=== PATIENT | female | born 1945 | race Caucasian/White ===

== ENCOUNTER → 2024-08-22 | Outpatient (CLI) | payer MEDICARE, OTHER, SELFPAY ==
[2024-08-22 13:05] LABS: Collection Type, Urine Clean Catch
[2024-08-22 14:43] LABS: Bacteria,Urine Rare; Bilirubin,Urine Negative (Negative); Blood,Urine Negative (Negative); Color,Urine Lt-Yellow (Lt Yel-Yel); Culture Indicated,Urine Not Indicated; Glucose, Urine Negative (Negative); Ketones,Urine Negative (Negative); Leukocyte Esterase,Urine Negative (Negative); Nitrite,Urine Negative (Negative); PH,Urine 6.5 (5.0-7.0); Protein,Urine Trace (Neg - Trace); RBC,Urine 1 /hpf (0-3); Specific Gravity,Urine 1.018 (1.001-1.035); Squamous Epithelial Cell,Urine 11 /hpf (0-5); Urobilinogen,Urine Negative mg/dL (0.0-1.0); WBC,Urine 5 /hpf (0-5)
[2024-08-22 14:51] LABS: Clarity,Urine Hazy (Clear/Hazy)
== END | disposition home or self-care (01) ==
PROVIDERS: PCP Family Medicine; Referring Provider Family Medicine; Visit Provider Family Medicine
DX: N39.0 Urinary tract infection, site not specified (principal)
CPT/HCPCS: 81001

== ENCOUNTER → 2024-08-23 | Outpatient (CLI) | payer MEDICARE, OTHER, SELFPAY ==
[2024-08-23 13:40] LABS: Anion Gap 5 (7-16); BUN/Creatinine Ratio 29 Ratio (12-20); Blood Urea Nitrogen 23 mg/dL (9-23); Calcium 8.8 mg/dL (8.3-10.6); Carbon Dioxide 27.1 mMol/L (20.0-31.0); Chloride 103 mMol/L (98-107); Creatinine (Component) 0.8 mg/dL (0.6-1.3); Glucose 97 mg/dL (74-106); Osmolality,Calculated 273 (275-295); Potassium 4.5 mMol/L (3.4-5.1); Sodium 135 mMol/L (136-145); eGFR > 60 See Note
== END | disposition home or self-care (01) ==
LOC: COPL 12:02
PROVIDERS: PCP Family Medicine; Referring Provider Nurse Practitioner Family; Visit Provider Nurse Practitioner Family
DX: E87.1 Hypo-osmolality and hyponatremia (principal)
CPT/HCPCS: 36415; 80048

== ENCOUNTER → 2024-08-29 | Outpatient (CLI) | payer MEDICARE, OTHER, SELFPAY ==
--- NOTE | 2024-08-29 10:40 | XR_ITS ---
Examination: Knee, left , 3 views Technique: Knee AP, lateral, oblique 3 views Date and time of exam: August 29, 2024 1158 hours INDICATIONS: Left knee replacement 2018, patient fell August 08, 2024 with injury to the knee with persistent knee pain FINDINGS: Moderate osteopenia Total left knee arthroplasty. Satisfactory alignment No fracture No definite loosening of the prosthetic components IMPRESSION: Total left knee arthroplasty with satisfactory alignment No fracture
== END | disposition home or self-care (01) ==
LOC: CDIM 10:22
PROVIDERS: PCP Family Medicine; Referring Provider Family Medicine; Visit Provider Family Medicine
DX: M25.562 Pain in left knee (principal); Z96.652 Presence of left artificial knee joint
CPT/HCPCS: 73562

== ENCOUNTER → 2024-11-01 | Outpatient (CLI) | payer MEDICARE, OTHER, SELFPAY ==
--- NOTE | 2024-11-01 16:44 | XR_ITS ---
Examination: PA lateral chest 2 views TECHNIQUE: Upright PA and lateral chest 2 views Standing time: November 01, 2024 5:44 PM INDICATIONS: Preop FINDINGS: Moderate hyperexpansion. Normal heart size. No pneumonia or pulmonary edema. Prominent osteopenia IMPRESSION: Moderate hyperexpansion No pneumonia or pulmonary edema.
== END | disposition home or self-care (01) ==
PROVIDERS: Referring Provider Family Medicine; Visit Provider Family Medicine
DX: R91.8 Other nonspecific abnormal finding of lung field (principal); J44.9 Chronic obstructive pulmonary disease, unspecified
CPT/HCPCS: 71046

== ENCOUNTER → 2024-11-03 | Outpatient (CLI) | payer MEDICARE, OTHER, SELFPAY ==
[2024-11-03 13:03] LABS: Collection Type, Urine Clean Catch; Squamous Epithelial Cell,Urine 0 /hpf (0-5)
[2024-11-03 13:24] LABS: Basophils # (Auto) 0.1 Thou/mm3 (0.0-0.2); Basophils % (Auto) 2 % (0-2.5); Eosinophils # (Auto) 0.1 Thou/mm3 (0.0-0.5); Eosinophils % (Auto) 3 % (0-10); Hematocrit 36.3 % (36.0-46.0); Hemoglobin 11.6 g/dL (12.0-16.0); Immature Granulocytes % (Auto) 0 % (0-0); Immature Granulocytes Auto 0.01 Thou/mm3 (0.00-0.00); Lymphocytes # (Auto) 1.5 Thou/mm3 (1.0-4.8); Lymphocytes % (Auto) 38 % (10-50); Mean Corpuscular Hemoglobin 29.3 pg (25.0-35.0); Mean Corpuscular Volume 92 fL (80-100); Monocytes # (Auto) 0.4 Thou/mm3 (0.0-0.8); Monocytes % (Auto) 9 % (0-12); Neutrophils # (Auto) 1.9 Thou/mm3 (1.8-7.7); Neutrophils % (Auto) 49 % (37-80); Nucleated Red Blood Cell % 0 /100 WBC (0); Platelet Count 254 Thou/mm3 (140-440); RDW Standard Deviation 47.8 fL (36.4-46.3); Red Blood Count 3.96 Miln/mm3 (4.00-5.20); White Blood Count 3.9 Thou/mm3 (3.6-11.0)
[2024-11-03 13:29] LABS: Bilirubin,Urine Negative (Negative); Blood,Urine Negative (Negative); Clarity,Urine Clear (Clear/Hazy); Color,Urine Colorless (Lt Yel-Yel); Culture Indicated,Urine Not Indicated; Glucose, Urine Negative (Negative); Ketones,Urine Negative (Negative); Leukocyte Esterase,Urine Negative (Negative); Nitrite,Urine Negative (Negative); Protein,Urine Negative (Neg - Trace); RBC,Urine 1 /hpf (0-3); Specific Gravity,Urine 1.011 (1.001-1.035); Urobilinogen,Urine Negative mg/dL (0.0-1.0); WBC,Urine 1 /hpf (0-5)
[2024-11-03 13:31] LABS: INR 1.1 (0.9-1.3); Partial Thromboplastin Time 25.5 Seconds (22.0-36.0); Prothrombin Time 11.7 Seconds (9.0-12.2)
[2024-11-03 15:56] LABS: Alanine Aminotransferase 40 U/L (10-49); Albumin/Globulin Ratio 1.8 (1.2-2.2); Alkaline Phosphatase 60 U/L (46-116); Anion Gap 5 (7-16); Aspartate Amino Transferase 39 U/L (0-34); BUN/Creatinine Ratio 26 Ratio (12-20); Bilirubin,Total 0.4 mg/dL (0.3-1.2); Blood Urea Nitrogen 21 mg/dL (9-23); Calcium 9.1 mg/dL (8.3-10.6); Calcium (Corrected) 9.1 mg/dL (8.5-10.1); Carbon Dioxide 29.9 mMol/L (20.0-31.0); Chloride 103 mMol/L (98-107); Creatinine (Component) 0.8 mg/dL (0.6-1.3); Globulin 2.2 gm/dL (2.3-3.5); Glucose 91 mg/dL (74-106); Osmolality,Calculated 278 (275-295); Sodium 138 mMol/L (136-145); Total Protein 6.2 gm/dL (5.7-8.2); eGFR > 60 See Note
== END | disposition home or self-care (01) ==
LOC: COPL 12:25
PROVIDERS: PCP Family Medicine; Referring Provider Family Medicine; Visit Provider Family Medicine
DX: I10 Essential (primary) hypertension (principal); N39.490 Overflow incontinence; D50.8 Other iron deficiency anemias
CPT/HCPCS: 36415; 80053; 81001; 85025; 85610; 85730

== ENCOUNTER 2024-12-28 10:27 | Inpatient (IN) | payer MEDICARE, OTHER, SELFPAY ==
[2024-12-28 10:31] VITALS: BP 150/73; PULSE 64; RESP 15; TEMP 36.8; O2SAT 98; BMI 19.4
[2024-12-28 10:52] VITALS: PULSE 65; RESP 18; O2SAT 96; BMI 19.4
--- NOTE | 2024-12-28 11:31 | XR_ITS ---
Examination: Left elbow 3 views Technique: Elbow AP, oblique, lateral 3 views Exam date and time: 12 1229 hours INDICATIONS: Patient fell today with injury elbow, elbow pain. FINDINGS: No acute fracture No dislocation Small elbow effusion IMPRESSION: No acute fracture Repeat this study short-term as clinically warranted.
--- NOTE | 2024-12-28 11:31 | XR_ITS ---
Examination:Left hip AP, lateral, AP pelvis 3 views Technique: Hip AP lateral, AP pelvis, 3 views Exam date and time:December 28, 2024 1259 hours INDICATIONS: Patient fell today with injury of the left hip, left hip pain. FINDINGS: Left hip bipolar hemiarthroplasty. Satisfactory alignment Suspicious for nondisplaced fracture left inferior pubic ramus Total right hip arthroplasty with satisfactory alignment IMPRESSION: Recommend CT examination pelvis without contrast follow-up to exclude acute fracture left inferior pubic ramus.
--- NOTE | 2024-12-28 11:31 | XR_ITS ---
Examination: Cervical spine 4 views TECHNIQUE: AP, lateral, swimmer's lateral, coned AP odontoid cervical spine 4 views Exam date and time: December 28, 2024 1229 hours Comparison September 09, 2011 INDICATIONS: Neck pain after falling today. FINDINGS: Straightening normal cervical lordosis. No cervical fracture. Intact odontoid. Significant disc narrowing C4-C5, C5-C6, C6-C7 IMPRESSION: No cervical fracture
--- NOTE | 2024-12-28 11:31 | XR_ITS ---
Examination: Forearm, left, 2 views. Technique: Forearm, AP, lateral 2 views Date and time of exam: December 28, 2024 1229 hours INDICATIONS: Patient fell today with injury to the forearm, forearm pain. FINDINGS: No acute fracture. Distal ulna is dorsally positioned on the lateral view which may be a function of projection, clinical correlation advised IMPRESSION: No acute fracture Suggest follow-up true lateral view the wrist as clinically warranted
--- NOTE | 2024-12-28 11:36 | XR_ITS ---
Examination: CT brain head without contrast. 2-D sagittal coronal reconstructions Date and time of exam:December 28, 2024 1153 hours INDICATIONS: Patient fell today with injury to the back of the head, head pain CTDI: vol (mGy):51.7 DLP: (mGycm):1181 Technique: Multiple CT axial sections of the brain have been obtained, 5 mm slice thickness. Contrast has not been administered. 2-D sagittal, coronal reconstructions have been obtained Low dose protocols were performed. One or more of the following dose reduction techniques were used; automated exposure control, adjustment of the mA and/or KV according to patient size, use of iterative reconstruction technique. Findings: No significant ventricular enlargement. Intra-axial or extra-axial hemorrhage density is not seen. No mass effect or midline shift Basal cisterns are not remarkable. Fourth ventricle is midline. Cranial vault intact. Significant right maxillary sinusitis Impression: Negative for acute hemorrhage, mass effect or midline shift
--- NOTE | 2024-12-28 11:36 | XR_ITS ---
Examination: AP chest single view TECHNIQUE: AP sitting portable chest single view Exam date and time: December 28, 2024 1242 hours Comparison November 01, 2024 INDICATIONS: Patient fell today with into the chest, chest pain FINDINGS: Normal heart size Skinfold over the right hemithorax No pneumothorax Prominent osteopenia IMPRESSION: No pneumothorax or pulmonary contusion Clavicles ribs appear grossly intact
--- NOTE | 2024-12-28 11:38 | PD.EDFALL ---
ED Fall Injury RME/HPI General Chief Complaint: Fall Stated Complaint: HIP+BODY PAIN,SECONDARY TO FALL Time Seen by Provider: 12/28/24 11:12 Source: patient Arrival date/time: 12/28/24 10:27 79-year-old female presents to the ED with chief complaint of left hip, left elbow, and left hip pain secondary to ground-level fall. She states she was helping her after he started to fall when he fell landing on top of her. She believes she hit her [place] countertop prior to falling to the ground. She is complaining of a left-sided scalp laceration as well as head pain, left anterior chest wall pain, left elbow pain with skin tears, left hip pain and groin pain. Pertinent past medical history includes chronic pain for which she had a spinal stimulator inserted last week as well as it being turned on this past Wednesday. She has also had a left hip replacement, left knee replacement. She denies any loss of consciousness, blurry or double vision, hearing changes dizziness. She denies any numbness, tingling or weakness to her extremities. Mode of arrival: EMS Limitations: no limitations RME / HPI Location of injury - extremities: Left: elbow and forearm Severity: moderate Associated symptoms (after fall): neck pain and unable to walk Related Data Home Medications ?Medication ?Instructions ?Recorded ?Confirmed ibandronate 150 mg tablet (Boniva) 150 mg PO Q30D #0 tabs 09/30/16 05/15/24 acyclovir 800 mg tablet 800 mg PO TID 05/15/24 05/15/24 escitalopram oxalate 5 mg tablet 5 mg PO QDAY 05/15/24 05/15/24 (Lexapro) eszopiclone 3 mg tablet (Lunesta) 3 mg PO HS 05/15/24 05/15/24 ibandronate 150 mg tablet 150 mg PO QMONTH 05/15/24 05/15/24 meloxicam 15 mg tablet 15 mg PO QDAY 05/15/24 05/15/24 Held on 05/15/24. Instructions: Resume on 05/16/24. methocarbamol 750 mg tablet 750 mg PO BID 05/15/24 05/15/24 Held on 05/15/24. Instructions: Resume on 05/16/24. propranolol 80 mg capsule,24 80 mg PO QDAY 05/15/24 05/15/24 hr,extended release solifenacin 10 mg tablet 10 mg PO QDAY 05/15/24 05/15/24 sumatriptan succinate 50 mg tablet 50 mg PO DAILY 05/15/24 05/15/24 tramadol 50 mg tablet 50 mg PO DAILY 05/15/24 05/15/24 Held on 05/15/24. Instructions: Resume on 05/16/24. Allergies Allergy/AdvReac Type Severity Reaction Status Date / Time Sulfa (Sulfonamide Allergy Severe Nausea/Vomi Verified 05/15/24 08:04 Antibiotics) tiing Review of Systems Review of Systems Systems Reviewed: All systems reviewed, normal except as documented Constitutional Constitutional: Reports as per HPI, Denies headache(s) and Denies weakness Eyes Eyes: Denies change in vision, Denies diplopia, Denies loss of vision and Denies other visual disturbances ENT Ears, Nose, Mouth, and Throat: Denies abnormal hearing, Denies dizziness, Denies epistaxis, Denies headache(s), Denies hearing loss and Reports neck pain Cardiovascular Cardiovascular: Denies chest pain, Denies dyspnea, Denies irregular heart rhythm, Denies lightheadedness and Denies syncope Respiratory Respiratory: Denies dyspnea Gastrointestinal Gastrointestinal: Denies abdominal pain, Denies nausea and Denies vomiting Musculoskeletal Musculoskeletal: Reports arthralgias, Reports limited range of motion, Reports neck pain, Denies numbness and Denies tingling Neurologic Neurologic: Denies abnormal hearing, Denies confusion, Denies dizziness, Denies headache(s), Denies loss of vision, Denies numbness, Denies paresthesias, Denies syncope, Denies tingling and Denies weakness Psychiatric Psychiatric: Denies confusion ED Exam General Limitations: Present no limitations General appearance: Present alert Head Head exam: Present other (Matted hair with blood noted to the left parietal scalp area.) Eye Eye exam: Present PERRL and EOMI; Absent nystagmus or periorbital swelling ENT ENT exam: Present normal oropharynx, mucous membranes moist, TM's normal bilaterally and normal external ear exam Neck Neck exam: Present tenderness (Left trapezius tenderness. No spinal point tenderness.) Chest Chest inspection: Present tenderness (Tenderness noted to the left anterior and lateral rib areas.) Respiratory Respiratory exam: Present normal lung sounds bilaterally; Absent respiratory distress Cardiovascular Cardiovascular exam: Present regular rate, normal rhythm and normal heart sounds; Absent irregular rhythm, systolic murmur or diastolic murmur Abdominal Exam Abdominal exam: Present soft and normal bowel sounds; Absent tenderness or trauma Rectal Exam Rectal exam: Present deferred Extremities Exam Extremities exam: Present other (Tenderness noted to the left elbow and forearm regions as well as tenderness to the left hip and groin. Skin tears noted to the left elbow and forearm regions.) Neurological Exam Neurological exam: Present alert and oriented X3; Absent motor sensory deficit Psychiatric Psychiatric exam: Present normal affect and normal mood Skin Skin exam: Present warm, dry and other (Skin tears as noted above) Course Quality Measures none Orders Category Date Time Status Cleanse Wound NEEDED Care 12/28/24 13:53 Active EKG (ED ONLY) *Do not use* NOW Care 12/28/24 22:37 Active IV [Insert IV] NOW Care 12/28/24 23:04 Active Consult to Orthopedic Stat Cons 12/28/24 22:[address] head/brain wo con Stat Exams 12/28/24 11:[address] pelvis wo con Stat Exams 12/28/24 15:41 Completed EKG (ED Only) Stat Exams 12/28/24 22:36 Ordered XR HIP LT W PELVIS (DO NOT USE) Stat Exams 12/28/24 11:31 Completed XR cervical spine 2-3V Stat Exams 12/28/24 11:31 Completed XR chest 1V Stat Exams 12/28/24 11:36 Completed XR elbow comp LT min 3V Stat Exams 12/28/24 11:31 Completed XR forearm LT 2V Stat Exams 12/28/24 11:31 Completed CBC Stat Lab 12/28/24 22:49 Completed CMP [Comprehensive Metabolic Panel] Stat Lab 12/28/24 22:49 Completed Lidocaine 1% W/Epi 1:100K 20Ml [Xylocaine 1% w/Epi 1: Med 12/28/24 14:39 Discontinued 100K 20 ml] 10 ml INFL X1 ONE Morphine Inj Med 12/28/24 11:48 Active 2 mg IVP Q1H PRN Morphine Inj Med 12/28/24 11:51 Discontinued 4 mg IVP Q1H PRN Ondansetron Inj [Zofran Inj] Med 12/28/24 21:53 Discontinued 4 mg IV X1 ONE Vital Signs Vital signs: Vital Signs Temperature 98.3 F 12/28/24 10:31 Pulse Rate 64 12/28/24 10:31 Respiratory Rate 15 12/28/24 10:31 Blood Pressure 150/73 H 12/28/24 10:31 Pulse Oximetry (%) 98 12/28/24 10:31 Oxygen Delivery Method Room Air 12/28/24 10:31 Procedures -ED Laceration Approximate 1.5 cm laceration noted to the left parietal/occipital scalp area. Bleeding is controlled. The wound was anesthetized with lidocaine 1%.: Site: scalp Side (If applicable): left Size (cm): 1.5 Description: irregular Depth: simple, single layer Local Anesthetic: lidocaine 1% and with epi Amount of anesthesia used (mL): 3.0 Pre-repair: wound explored and irrigated extensively Skin layer closed with: other ([place] x2) Left elbow x 2: Site: upper extremity Side (If applicable): left Size (cm): 3.5 Description: other (Skin tear x 2. Proximal laceration with minimal amount of skin flap. Distal laceration with no skin remaining.) Local Anesthetic: lidocaine 1% and with epi Amount of anesthesia used (mL): 2.0 Pre-repair: wound explored and irrigated extensively Technique: other (Unable to perform skin closure. Small skin flap unrolled to partially cover proximal end of proximal laceration. Wound cleansed. Tegaderm placed. Distal laceration with no skin remaining, wound cleansed, irrigated with saline, dried and covered with Tegaderm dressing.) Fall MDM Narrative MDM Narrative:: 79-year-old female presents to the ED with chief complaint of left hip, left elbow, and left hip pain secondary to ground-level fall. She states she was helping her after he started to fall when he fell landing on top of her. She believes she hit her [place] countertop prior to falling to the ground. She is complaining of a left-sided scalp laceration as well as head pain, left anterior chest wall pain, left elbow pain with skin tears, left hip pain and groin pain. Pertinent past medical history includes chronic pain for which she had a spinal stimulator inserted last week as well as it being turned on this past Wednesday. She has also had a left hip replacement, left knee replacement. She denies any loss of consciousness, blurry or double vision, hearing changes dizziness. She denies any numbness, tingling or weakness to her extremities. Tenderness noted to the left elbow and forearm regions as well as tenderness to the left hip and groin. Skin tears noted to the left elbow and forearm regions. Skin tear x 2. Proximal laceration with minimal amount of skin flap. Distal laceration with no skin remaining. Unable to perform skin closure. Small skin flap unrolled to partially cover proximal end of proximal laceration. Wound cleansed. Tegaderm placed. Distal laceration with no skin remaining, wound cleansed, irrigated with saline, dried and covered with Tegaderm dressing. Matted hair with blood noted to the left parietal scalp area. Approximate 1.5cm laceration noted after cleansing. Anesthesia with [place] 1% w/Epi. Closure with 2 donita with good wound edge approximation. Patient data External records reviewed:: None Clinical information provided by:: patient and family Social determinants that could affect healthcare access:: none Evaluation data The following diagnostics were reviewed and interpreted by me:: radiology exam(s) Lab and/or radiology exams considered but not ordered:: CT Brain Cervical Spine Chest XR 1V Left Elbow/Forearm Left Hip/Pelvis Interpretation Summary: 1V Chest: FINDINGS: Normal heart size Skinfold over the right hemithorax No pneumothorax Prominent osteopenia IMPRESSION: No pneumothorax or pulmonary contusion Clavicles ribs appear grossly intact CT Pelvis: FINDINGS: Sacral segments iliac bones intact Acute displaced fracture left inferior pubic ramus Acute fracture without significant displacement left superior pubic ramus near the symphysis Total right hip arthroplasty with satisfactory alignment Left hip bipolar hemiarthroplasty with satisfactory alignment No hip dislocation IMPRESSION: Acute fractures left superior and inferior pubic rami Medications / Prescriptions Medication administrations:: Medication Administration History Morphine Sulfate (Morphine Sulf Inj 10 Mg/Ml Vial) 2 mg IVP Q1H PRN PRN Reason: Moderate Pain 4-6 Last Admin: 12/28/24 23:02 Dose: 2 mg Documented By: Admin: 12/28/24 21:02 Dose: 2 mg Documented By: CVL Comments: IV LOCK LEFT HAND Discontinued Medications Lidocaine/Epinephrine (Lidocaine 1% W/Epi 1:100k 20 Ml Vial) 10 ml INFL X1 ONE Stop: 12/28/24 14:40 Last Admin: 12/28/24 15:54 Dose: 10 ml Documented By: VG Morphine Sulfate (Morphine Sulf Inj 10 Mg/Ml Vial) 4 mg IVP Q1H PRN PRN Reason: Severe pain 7-10 Last Admin: 12/28/24 15:54 Dose: 4 mg Documented By: Admin: 12/28/24 14:01 Dose: 4 mg Documented By: DEE DEE Admin: 12/28/24 12:07 Dose: 4 mg Documented By: VG Ondansetron HCl (Ondansetron Inj 2 Mg/Ml Inj 2 Ml) 4 mg IV X1 ONE; Protocol Stop: 12/28/24 21:54 Last Admin: 12/28/24 23:01 Dose: 4 mg Documented By: CVL Discharge Plan Prescriptions/Referrals Prescriptions/Med Rec: No Action ibandronate [Boniva] 150 MG tablet 150 mg PO Q30D Qty: 0 meloxicam 15 mg tablet 15 mg PO QDAY Patient Comments: TAKE 1 TABLET BY MOUTH EVERY DAY WITH FOOD sumatriptan succinate 50 mg Tablet 50 mg PO DAILY tramadol 50 mg tablet 50 mg PO DAILY Patient Comments: TAKE 1 TABLET BY MOUTH TWICE A DAY NEEDED acyclovir 800 mg Tablet 800 mg PO TID methocarbamol 750 mg Tablet 750 mg PO BID propranolol 80 mg capsule,extended release 24 hr 80 mg PO QDAY Patient Comments: TAKE 1 CAPSULE BY MOUTH EVERY DAY escitalopram oxalate [Lexapro] 5 mg Tablet 5 mg PO QDAY solifenacin 10 mg tablet 10 mg PO QDAY Patient Comments: TAKE 1 TABLET BY MOUTH EVERY DAY FOR 90 DAYS eszopiclone [Lunesta] 3 mg Tablet 3 mg PO HS ibandronate 150 mg Tablet 150 mg PO QMONTH Referrals: Ekaterina Willett MD [Primary Care Provider] - In 1 week Patient/Caregiver Discharge Instructions Print Language: Citizen Of [place]
[2024-12-28] MEDS: MORPHINE SULF INJ 10 MG/ML VIAL 4 MG IVP ×3 (12:07→15:54)
[2024-12-28 14:00] VITALS: BP 147/75; PULSE 73; RESP 18; TEMP 36.8; O2SAT 96
--- NOTE | 2024-12-28 15:41 | XR_ITS ---
Examination: CT pelvis without intravenous contrast. 2-D sagittal and coronal reconstructions. Date and time of exam:December 28, 2024 2120 hours INDICATIONS: Patient fell today with injury to the left hip, left hip pain CTDI: vol (mGy) :5.5 DLP: (mGycm) : 217 Technique: Multiple 3 mm axial sections of the pelvis have been obtained with the 64 slice high resolution scanner. 2-D sagittal and coronal reconstructions. Low dose protocols were performed. One or more of the following dose reduction techniques were used; automated exposure control, adjustment of the mA and/or KV according to patient size, use of iterative reconstruction technique. Findings: Sacral segments iliac bones intact Acute displaced fracture left inferior pubic ramus Acute fracture without significant displacement left superior pubic ramus near the symphysis Total right hip arthroplasty with satisfactory alignment Left hip bipolar hemiarthroplasty with satisfactory alignment No hip dislocation IMPRESSION: Acute fractures left superior and inferior pubic rami
[2024-12-28] MEDS: LIDOCAINE 1% W/EPI 1:100K 20 ML VIAL 10 ML INFL (15:54)
[2024-12-28 18:23] VITALS: BP 143/86; PULSE 79; RESP 16; TEMP 36.8; O2SAT 96
[2024-12-28] MEDS: MORPHINE SULF INJ 10 MG/ML VIAL 2 MG IVP ×2 (21:02→23:02)
--- NOTE | 2024-12-28 22:36 | EKG_ITS ---
[facility] Test Date: 2024-12-28 Pat Name: SHILPA MCPHERSON Department: Room: - Gender: Female [place] Operator: : [id number] Requested By: Maynor Rodgers Order Number: [id number] Reading MD: Maynor Rodgers Measurements Intervals [place] Rate: 67 P: 69 OR: 164 QRS: 42 QRSD: 94 T: 58 QT: 406 QTc: 429 Interpretive Statements SINUS RHYTHM POSSIBLE LEFT ATRIAL ENLARGEMENT [-0.1mV P-WAVE IN V1/V2] POSSIBLE RIGHT VENTRICULAR CONDUCTION DELAY [RSR (QR) IN V1/V2] Compared to ECG 08/24/2022 10:46:16 Myocardial infarct finding no longer present /store/[id number]
[2024-12-28] MEDS: ONDANSETRON INJ 2 MG/ML INJ 2 ML 4 MG IV (23:01)
[2024-12-28 23:06] LABS: Basophils % (Auto) 0 % (0-2.5); Eosinophils # (Auto) 0.1 Thou/mm3 (0.0-0.5); Eosinophils % (Auto) 1 % (0-10); Hematocrit 32.6 % (36.0-46.0); Hemoglobin 10.7 g/dL (12.0-16.0); Immature Granulocytes % (Auto) 0 % (0-0); Immature Granulocytes Auto 0.03 Thou/mm3 (0.00-0.00); Lymphocytes # (Auto) 0.8 Thou/mm3 (1.0-4.8); Lymphocytes % (Auto) 12 % (10-50); Mean Corpuscular HGB Conc 32.8 g/dl (31.0-37.0); Mean Corpuscular Hemoglobin 29.3 pg (25.0-35.0); Mean Corpuscular Volume 89 fL (80-100); Monocytes # (Auto) 0.5 Thou/mm3 (0.0-0.8); Monocytes % (Auto) 7 % (0-12); Neutrophils # (Auto) 5.5 Thou/mm3 (1.8-7.7); Neutrophils % (Auto) 79 % (37-80); Nucleated Red Blood Cell % 0 /100 WBC (0); Platelet Count 220 Thou/mm3 (140-440); RDW Standard Deviation 47.7 fL (36.4-46.3); Red Blood Count 3.65 Miln/mm3 (4.00-5.20)
[2024-12-28 23:13] LABS: Alanine Aminotransferase 31 U/L (10-49); Albumin, Serum 3.6 gm/dL (3.4-4.8); Albumin/Globulin Ratio 1.6 (1.2-2.2); Alkaline Phosphatase 70 U/L (46-116); Anion Gap 6 (7-16); Aspartate Amino Transferase 33 U/L (0-34); BUN/Creatinine Ratio 24 Ratio (12-20); Bilirubin,Total 0.8 mg/dL (0.3-1.2); Blood Urea Nitrogen 17 mg/dL (9-23); Calcium 8.6 mg/dL (8.3-10.6); Calcium (Corrected) 8.9 mg/dL (8.5-10.1); Carbon Dioxide 29.7 mMol/L (20.0-31.0); Chloride 103 mMol/L (98-107); Creatinine (Component) 0.7 mg/dL (0.6-1.3); Estimated Creatinine Clearance 60.7 mL/min (>60); Globulin 2.3 gm/dL (2.3-3.5); Glucose 118 mg/dL (74-106); Osmolality,Calculated 280 (275-295); Potassium 4.3 mMol/L (3.4-5.1); Sodium 139 mMol/L (136-145); Total Protein 5.9 gm/dL (5.7-8.2); eGFR > 60 See Note
--- NOTE | 2024-12-28 23:52 | PD.RESHP ---
Documentation for date of: 12/28/24 HPI History of Present Illness Chief complaint: pain in the left groin area History of present illness: Patient is a 79-year-old female with previous medical history of anxiety, osteopenia, status post bilateral hip replacement who was brought in to the ED due to mechanical fall. She was helping her when he was repairing something while standing on a ladder, he lost his balance and fell back on her. She landed on the left side of her body, hit her head, denies losing consciousness. She reports left groin pain, pain in the left elbow. She had lacerations on the head, skin tear on the left elbow. ED course: Blood pressure 150/73, heart rate 64, saturating well on room air. Hemoglobin 10.7, platelets 220, sodium 139, potassium 4.3, EGFR more than 60, head CT negative for acute hemorrhage, mass effect or midline shift. Left arm imaging negative for fractures and dislocations. Hip and pelvis x-ray and 3 views suspicious for left inferior pubic rami fracture. Dr. Pittman, orthopedic surgeon was consulted, recommended conservative treatment and physical rehabilitation. Patient is going to be admitted for stable pubic rami pelvis fracture management and treatment. Social history: Does not smoke and does not drink alcohol. Before fall, fully independent in her everyday life, exercises regularly. Medications: Official med rec is pending Allergies: Sulfa drugs Review of Systems Review of Systems Systems Reviewed: All systems reviewed, normal except as documented Past Medical History Past Medical History NEUROLOGIC: Negative Neurological Disorders CARDIAC: Positive Valvular Heart Disease RESPIRATORY: Negative Respiratory Disorders GASTROINTESTINAL: Negative Gastrointestinal Disorders GENITOURINARY: Negative Genitourinary Disorders MUSCULOSKELETAL: Positive Musculoskeletal Disorders (osteopenia) and Degenerative Joint Disease Exam Vital Signs Temp Pulse Resp BP Pulse Ox O2 Del Method 98.2 F 79 16 143/86 H 96 Room Air 12/28/24 18:23 12/28/24 18:23 12/28/24 18:23 12/28/24 18:23 12/28/24 18:23 12/28/24 18:23 Narrative Exam Physical Exam General: Awake and in no acute distress. Conversational and non-toxic appearing. HEENT: Normocephalic, atraumatic, mucous membranes moist. Heart: Regular rate and rhythm, no murmurs. Lungs: Clear to auscultation with no wheezing or crackles. Abdomen: Soft, nondistended, nontender, positive bowel sounds. ?No guarding or rebound tenderness. Neurologic: Alert and oriented x3, no gross neurological deficit, and patient able to move all 4 extremities. Extremities: No edema. Extreme pain in the right groin during passive leg raise. Skin: No rash or ecchymoses. Results: Labs 12/29/24 05:17 12/29/24 05:17 Labs: Short CBC 12/28/24 Range/Units 22:49 WBC 7.0 (3.6-11.0) Thou/mm3 Hgb 10.7 L (12.0-16.0) g/dL Hct 32.6 L (36.0-46.0) % Plt Count 220 (140-440) Thou/mm3 BMP 12/28/24 22:49 Sodium 139 Potassium 4.3 Chloride 103 Carbon Dioxide 29.7 BUN 17 Creatinine 0.7 Glucose 118 H Calcium 8.6 Liver Function 12/28/24 Range/Units 22:49 Total Bilirubin 0.8 (0.3-1.2) mg/dL AST 33 (0-34) U/L ALT 31 (10-49) U/L Alkaline Phosphatase 70 (46-116) U/L Albumin 3.6 (3.4-4.8) gm/dL Quality Measures Quality Measures VTE prophylaxis Advance care planning discussed with:: patient and child Medications Home Medications and Allergies Home Medications ?Medication ?Instructions ?Recorded ?Confirmed ?Type ibandronate 150 mg tablet (Boniva) 150 mg PO Q30D #0 tabs 09/30/16 05/15/24 History acyclovir 800 mg tablet 800 mg PO TID 05/15/24 12/29/24 History escitalopram oxalate 5 mg tablet 5 mg PO HS 05/15/24 12/29/24 History (Lexapro) eszopiclone 3 mg tablet (Lunesta) 3 mg PO HS 05/15/24 12/29/24 History ibandronate 150 mg tablet 150 mg PO QMONTH 05/15/24 12/29/24 History meloxicam 15 mg tablet 15 mg PO QDAY 05/15/24 12/29/24 History Held on 05/15/24. Instructions: Resume on 05/16/24. propranolol 80 mg capsule,24 80 mg PO HS 05/15/24 12/29/24 History hr,extended release solifenacin 10 mg tablet 10 mg PO QDAY 05/15/24 12/29/24 History sumatriptan succinate 50 mg tablet 50 mg PO BID PRN migraine headache 05/15/24 12/29/24 History tramadol 50 mg tablet 50 mg PO DAILY 05/15/24 05/15/24 History Held on 05/15/24. Instructions: Resume on 05/16/24. Allergies Allergy/AdvReac Type Severity Reaction Status Date / Time Sulfa (Sulfonamide Allergy Severe Nausea/Vomi Verified 05/15/24 08:04 Antibiotics) tiing Visit Medications Acetaminophen (Acetaminophen 325 Mg Tablet) 650 mg PO Q6H PRN PRN Reason: Fever >100.3 or pain 1-3 Stop: 01/27/25 23:41 Docusate Sodium (Docusate Sod 100 Mg Capsule) 100 mg PO QDAY [facility]; Protocol Stop: 01/28/25 08:59 Enoxaparin Sodium (Enoxaparin Sod Inj 40 Mg/0.4 Ml Syringe) 40 mg SC QDAY FUNMI Stop: 01/12/25 08:59 Escitalopram Oxalate (Escitalopram Oxalate 10 Mg Tablet) 5 mg PO HS FUNMI Stop: 01/28/25 20:59 Melatonin (Melatonin 3 Mg Tablet) 3 mg PO HS PRN PRN Reason: SLEEPLESSNESS Stop: 01/28/25 20:59 Morphine Sulfate (Morphine Sulf Inj 10 Mg/Ml Vial) 2 mg IVP Q1H PRN PRN Reason: Moderate Pain 4-6 Last Admin: 12/28/24 23:02 Dose: 2 mg Morphine Sulfate (Morphine Sulf Inj 10 Mg/Ml Vial) 1 mg IVP Q2H PRN PRN Reason: PAIN SCALE 7-10 (Severe Stop: 01/02/25 23:41 Ondansetron HCl (Ondansetron Inj 2 Mg/Ml Inj 2 Ml) 4 mg IV Q6H PRN; Protocol PRN Reason: NAUSEA OR VOMITING Stop: 01/27/25 23:41 Oxycodone/Acetaminophen (Oxycodone/Apap 5/325 Tablet) 1 tab PO Q6H PRN PRN Reason: PAIN SCALE 4-6 (Moderate Stop: 01/02/25 23:41 Sennosides (Senna Tablet) 1 tab PO QDAY [facility]; Protocol Stop: 01/28/25 08:59 Discontinued Medications Lidocaine/Epinephrine (Lidocaine 1% W/Epi 1:100k 20 Ml Vial) 10 ml INFL X1 ONE Stop: 12/28/24 14:40 Last Admin: 12/28/24 15:54 Dose: 10 ml Morphine Sulfate (Morphine Sulf Inj 10 Mg/Ml Vial) 4 mg IVP Q1H PRN PRN Reason: Severe pain 7-10 Last Admin: 12/28/24 15:54 Dose: 4 mg Morphine Sulfate (Morphine Sulf Inj 10 Mg/Ml Vial) 2 mg IVP X1 ONE Stop: 12/28/24 23:43 Ondansetron HCl (Ondansetron Inj 2 Mg/Ml Inj 2 Ml) 4 mg IV X1 ONE; Protocol Stop: 12/28/24 21:54 Last Admin: 12/28/24 23:01 Dose: 4 mg Assessment & Plan Plan Patient is a 79-year-old female with previous medical history of anxiety, osteopenia, mitral valve prolapse, status post bilateral hip replacement who was brought in to the ED due to mechanical fall. She was admitted for stable pelvis fracture management and treatment. #Left pubic rami fracture Patient has a history of osteopenia and had a mechanical fall. Dr. Pittman orthopedic surgeon was consulted, recommended conservative treatment. Plan: ? Pain control as needed ? Physical therapy evaluation ? Consider SNF placement on discharge ? Ortho consult #History of osteopenia Plan: ? follow-up outpatient #History of anxiety ? Resumed home Lexapro #History of mitral valve prolapse Stable condition. Patient's computer processing scheduler is Dr. Guallpa. Plan: ? Consider resuming home propranolol Health maintenance: FEN: cardiac DVT prophylaxis: lovenox sc GI prophylaxis: none Dispo: med surg CODE STATUS: Full code Plan of care discussed with attending Dr. Resendiz. Pamela Zimmerman MD, PGY 1. Attending Provider Attestation/Addendum I attest that I was physically present for the evaluation, physical examination, lab and imaging review of the patient with the residents. I discussed the case with the residents and agree with the findings and plans of care as documented above. Patient is a 79 years old female with past medical history of anxiety, osteopenia, status post bilateral hip replacement who presented to the ED after a mechanical fall. Patient was helping her while standing on the ladder, her lost balance and fell on her. In the ED, her blood pressure was 150s/73, rest of the vitals were within normal limits, saturating well on room air. Lab results were nonconcerning. CT head was negative for acute hemorrhage, mass effect or midline shift. Hip and pelvis x-ray shows suspicion for left inferior pubic rami fracture. Orthopedic surgeon was contacted by ED, recommended conservative treatment and physical therapy. We will admit the patient for management of left pubic rami fracture. We will start analgesic regimen, obtain physical therapy and orthopedics consult. Andre Resendiz MD
[2024-12-29] VITALS (10 sets, daily range): BP systolic 114–142; BP diastolic 64–79; PULSE 68–79; RESP 16–96; TEMP 36.4–37.6; O2SAT 92–95; BMI 19.3; BMI 12.0
[2024-12-29] MEDS: MORPHINE SULF INJ 10 MG/ML VIAL 2 MG IVP (00:53)
[2024-12-29] MEDS: TETANUS,DIPHTHERIA TOXOIDS/PF (ADULT) 0.5 ML SYRINGE IMi (00:55)
[2024-12-29] MEDS: MORPHINE SULF INJ 10 MG/ML VIAL IVP ×7 (02:20→18:43)
[2024-12-29 05:34] LABS: Basophils % (Auto) 1 % (0-2.5); Eosinophils # (Auto) 0.1 Thou/mm3 (0.0-0.5); Eosinophils % (Auto) 1 % (0-10); Hematocrit 31.1 % (36.0-46.0); Hemoglobin 10.1 g/dL (12.0-16.0); Immature Granulocytes % (Auto) 1 % (0-0); Immature Granulocytes Auto 0.03 Thou/mm3 (0.00-0.00); Lymphocytes # (Auto) 0.9 Thou/mm3 (1.0-4.8); Lymphocytes % (Auto) 15 % (10-50); Mean Corpuscular HGB Conc 32.5 g/dl (31.0-37.0); Mean Corpuscular Hemoglobin 29.5 pg (25.0-35.0); Mean Corpuscular Volume 91 fL (80-100); Monocytes # (Auto) 0.5 Thou/mm3 (0.0-0.8); Monocytes % (Auto) 8 % (0-12); Neutrophils # (Auto) 4.5 Thou/mm3 (1.8-7.7); Neutrophils % (Auto) 75 % (37-80); Nucleated Red Blood Cell % 0 /100 WBC (0); Platelet Count 215 Thou/mm3 (140-440); RDW Standard Deviation 48.8 fL (36.4-46.3); Red Blood Count 3.42 Miln/mm3 (4.00-5.20); White Blood Count 5.9 Thou/mm3 (3.6-11.0)
[2024-12-29 06:10] LABS: Alanine Aminotransferase 27 U/L (10-49); Albumin, Serum 3.4 gm/dL (3.4-4.8); Albumin/Globulin Ratio 1.7 (1.2-2.2); Alkaline Phosphatase 65 U/L (46-116); Anion Gap 5 (7-16); Aspartate Amino Transferase 27 U/L (0-34); BUN/Creatinine Ratio 28 Ratio (12-20); Bilirubin,Total 0.6 mg/dL (0.3-1.2); Blood Urea Nitrogen 17 mg/dL (9-23); Calcium 8.3 mg/dL (8.3-10.6); Calcium (Corrected) 8.8 mg/dL (8.5-10.1); Carbon Dioxide 29.6 mMol/L (20.0-31.0); Chloride 101 mMol/L (98-107); Creatinine (Component) 0.6 mg/dL (0.6-1.3); Estimated Creatinine Clearance 70.3 mL/min (>60); Glucose 122 mg/dL (74-106); Magnesium 1.8 mg/dL (1.6-2.6); Osmolality,Calculated 274 (275-295); Phosphorous 3.2 mg/dL (2.4-5.1); Potassium 4.2 mMol/L (3.4-5.1); Sodium 136 mMol/L (136-145); Total Protein 5.4 gm/dL (5.7-8.2); eGFR > 60 See Note
[2024-12-29] MEDS: ONDANSETRON INJ 2 MG/ML INJ 2 ML 4 MG IV ×2 (07:28→19:52)
[2024-12-29] MEDS: oxyCODONE/APAP 5/325 TABLET 1 TAB PO ×2 (07:28→15:31)
[2024-12-29] MEDS: DOCUSATE SOD 100 MG CAPSULE PO (08:28)
[2024-12-29] MEDS: SENNA TABLET 1 TAB PO (08:28)
[2024-12-29] MEDS: ENOXAPARIN SOD INJ 40 MG/0.4 ML SYRINGE SC (08:29)
--- NOTE | 2024-12-29 09:37 | PC.SS ---
Follow up note: On IV pain meds. Pain management. Dr. Pittman is consulting. Pt is possible dc to SNF.
--- NOTE | 2024-12-29 11:23 | PC.SS ---
PASRR assessment Leve 2 requires to be closed before d/c to SNF.
--- NOTE | 2024-12-29 11:38 | PCS.ST ---
SS met with patient and regarding her d/c plan.? Pt is alert/oriented.? Pt was admitted for Pelvic Fracture.? Pt confirmed demographic and contact information is correct on facesheet.? Pt resides with .? Prior to being hospitalized pt ambulated independently without assistance or DME.? Pt was ok with all ADLs before being hospitalized.? Pt named her , Dima Luis medical decision maker if she is unable.? SS provided verbal options for d/c to home or SNF.? Patient?s choice is SNF.? Patient's 1st choice is [facility], 2nd [facility], and 3rd [facility].? Pt states she has an advance directive at home.? Pt states she is not diabetic and is not on dialysis.? Pt states she followed up with PCP in November and her next appointment is Wednesday.? Pt and are both aware patient's health insurance does not cover transportation to SNF and if pt is requiring transportation they will have to pay privately. D/C plan:? SNF, 1st choice is [facility] Next of Kin:? ?[facility], , phone# [phone] PCP:? Dr. Ekaterina Willett Address:? Correct on facesheet
--- NOTE | 2024-12-29 12:35 | ESPR_ITS ---
<Statement entered by Jose M Parker MD - 12/29/24 16:01> I discussed with and supervised the internet network specialist physician involved in the care of this patient. Patient assessment and plan was discussed with entire medicine team, including my attending. I agree with the assessment and plan as documented by internet network specialist doctor. Patient care was discussed with my attending physician Dr. Deloris Parker, PGY-2 Documentation for date of: 12/29/24 Subjective Subjective Interval history: Patient seen and examined at bedside. Labs and vitals reviewed. Patient complains of pain, requiring IV pain medications. Orthopedics consulted, conservative management, weight bearing as tolerated. Pending physical therapy evaluation. Exam Vital Signs Temp Pulse Resp BP Pulse Ox O2 Del Method 98.1 F 79 20 118/67 95 Room Air 12/29/24 11:56 12/29/24 11:56 12/29/24 11:56 12/29/24 11:56 12/29/24 11:56 12/29/24 11:56 Narrative Exam Physical Exam General: Awake and in no acute distress. Conversational and non-toxic appearing. HEENT: Normocephalic, atraumatic, mucous membranes moist. Heart: Regular rate and rhythm, no murmurs. Lungs: Clear to auscultation with no wheezing or crackles. Abdomen: Soft, nondistended, nontender, positive bowel sounds. ?No guarding or rebound tenderness. Neurologic: Alert and oriented x3, no gross neurological deficit, and patient able to move all 4 extremities. Extremities: No edema. Extreme pain in the right groin during passive leg raise. Skin: No rash or ecchymoses. Objective Labs 12/29/24 05:17 12/29/24 05:17 Labs: Laboratory Results - last 24 hr 12/28/24 12/29/24 22:49 05:17 WBC 7.0 5.9 RBC 3.65 L 3.42 L Hgb 10.7 L 10.1 L Hct 32.6 L 31.1 L MCV 89 91 MCH 29.3 29.5 MCHC 32.8 32.5 RDW Std Deviation 47.7 H 48.8 H Plt Count 220 215 Neut % (Auto) 79 75 Lymph % (Auto) 12 15 [place] % (Auto) 7 8 Eos % (Auto) 1 1 Baso % (Auto) 0 1 Neut # (Auto) 5.5 4.5 Lymph # (Auto) 0.8 L 0.9 L [place] # (Auto) 0.5 0.5 Eos # (Auto) 0.1 0.1 Baso # (Auto) 0.0 0.0 Immature Gran # (Auto) 0.03 H 0.03 H Absolute Nucleated RBC 0.00 0.00 Immature Gran % 0 1 H Nucleated RBC % 0 0 Sodium 139 136 Potassium 4.3 4.2 Chloride 103 101 Carbon Dioxide 29.7 29.6 Anion Gap 6 L 5 L BUN 17 17 Creatinine 0.7 0.6 Estim Creat Clear Calc 60.7 L 70.3 eGFR > 60 > 60 BUN/Creatinine Ratio 24 H 28 H Glucose 118 H 122 H Calculated Osmolality 280 274 L Calcium 8.6 8.3 Corrected Calcium 8.9 8.8 Phosphorus 3.2 Magnesium 1.8 Total Bilirubin 0.8 0.6 AST 33 27 ALT 31 27 Alkaline Phosphatase 70 65 Total Protein 5.9 5.4 L Albumin 3.6 3.4 Globulin 2.3 2.0 L Albumin/Globulin Ratio 1.6 1.7 Quality Measures Quality Measures VTE prophylaxis Advance care planning discussed with:: patient Assessment & Plan Assessment Current Active Medications: Generic Name Dose Route Start Last Admin Trade Name Freq PRN Reason Stop Dose Admin Acetaminophen 650 mg 12/28/24 23:42 Acetaminophen 325 Mg Tablet PO 01/27/25 23:41 Q6H PRN Fever >100.3 or pain 1-3 Docusate Sodium 100 mg 12/29/24 09:00 12/29/24 08:28 Docusate Sod 100 Mg Capsule PO 01/28/25 08:59 100 mg QDAY FUNMI Administration Protocol Enoxaparin Sodium 40 mg 12/29/24 09:00 12/29/24 08:29 Enoxaparin Sod Inj 40 Mg/0.4 Ml Syringe SC 01/12/25 08:59 40 mg QDAY FUNMI Administration Escitalopram Oxalate 5 mg 12/29/24 21:00 Escitalopram Oxalate 10 Mg Tablet PO 01/28/25 20:59 HS FUNMI Melatonin 3 mg 12/28/24 23:48 Melatonin 3 Mg Tablet PO 01/28/25 20:59 HS PRN SLEEPLESSNESS Morphine Sulfate 1 mg 12/28/24 23:42 12/29/24 12:02 Morphine Sulf Inj 10 Mg/Ml Vial IVP 01/02/25 23:41 1 mg Q2H PRN Administration PAIN SCALE 7-10 (Severe Ondansetron HCl 4 mg 12/28/24 23:42 12/29/24 07:28 Ondansetron Inj 2 Mg/Ml Inj 2 Ml IV 01/27/25 23:41 4 mg Q6H PRN Administration NAUSEA OR VOMITING Protocol Oxycodone/Acetaminophen 1 tab 12/28/24 23:42 12/29/24 07:28 Oxycodone/Apap 5/325 Tablet PO 01/02/25 23:41 1 tab Q6H PRN Administration PAIN SCALE 4-6 (Moderate Sennosides 1 tab 12/29/24 09:00 12/29/24 08:28 Senna Tablet PO 01/28/25 08:59 1 tab QDAY FUNMI Administration Protocol Plan Assessment and Plan: Summary: Patient is a 79-year-old female with previous medical history of anxiety, osteopenia, mitral valve prolapse, status post bilateral hip replacement who was brought in to the ED due to mechanical fall. She was admitted for stable pelvis fracture management and treatment. #Left pubic rami fracture Patient has a history of osteopenia and had a mechanical fall. Dr. Pittman orthopedic surgeon was consulted, recommended conservative treatment. Patient complains of pain, requiring IV pain medications. Orthopedics consulted, conservative management, weight bearing as tolerated. Plan: -Pain control as needed, currently requiring IV Morphine. -Patient on [place] prn -Physical therapy evaluation -Will Consider SNF placement on discharge -Ortho consult, appreciate recommendations #History of osteopenia Plan: ? follow-up outpatient #History of anxiety ? Resumed home Lexapro #History of mitral valve prolapse Stable condition. Patient's field research associate is Dr. Guallpa. Plan: ? Blood pressure soft, will monitor Health maintenance: FEN: cardiac DVT prophylaxis: lovenox sc GI prophylaxis: none Dispo: med surg CODE STATUS: Full code Case discussed with Attending Dr. Puentes and Dr. Parker PGY2. Mary Li PGY1 Disclaimer: This note was dictated by speech recognition. Minor errors in skidway man may be present due to voice recognition software.
--- NOTE | 2024-12-29 12:38 | PC.SS ---
Addendum entered by [place] Shearer 12/29/24 13:46: SS spoke to Jo from [facility] who explained they can accept pt on Wednesday and have transportation. Addendum entered by [place] Shearer 12/29/24 12:55: SS met with pt and provided her with the Community Resource List. Pt is aware [facility] has not responded on [facility]. Patient's 2nd choice is [facility]. Pt is aware [facility] has semi private room. Original Note: SS has sent inquiry to the local SNF using [facility].
--- NOTE | 2024-12-29 12:59 | PD.ORTHCONPN ---
Subjective Subjective Brief History: left hip pain Narrative: Patient is a 79 yo female with a mechanical fall who is a baseline ambulator with no assistive device with a ground level fall. She was found to have inferior pubic ramus fracture. She has been able to walk and ambulate with a walked. Exam Vital Signs Temp Pulse Resp BP Pulse Ox O2 Del Method 98.1 F 79 20 118/67 95 Room Air 12/29/24 11:56 12/29/24 11:56 12/29/24 11:56 12/29/24 11:56 12/29/24 11:56 12/29/24 11:56 Additional findings Additional findings: Patient is in no acute distress and is cooperative with the examination today. Breathing is nonlabored. In no respiratory distress. Patient has no paraspinal tenderness. Spinal deformity cannot be appreciated. The gait of the patient is nonantalgic Bilateral extremities were evaluated and demonstrates sensation intact to light touch. Palpable pedal pulses are present. No significant edema is present. Bilateral knees were examined and the patient has full strength and range of motion.. The right hip was examined. Patient was able to flex to 90 degrees, adduct to 30 degrees, abduct to 40 degrees, internally rotate to 20 degrees, and externally rotate to 20 degrees. Patient has a negative logroll. Stinchfield is negative. The patient is nontender diffusely to touch. The left hip was examined. Patient was able to flex to 90 degrees, adduct to 30 degrees, abduct to 40 degrees, internally rotate to 20 degrees, and externally rotate to 20 degrees. Patient has a negative logroll. The stinchfield is negative. Xrays demonstrate a superior and inferior pubic ramus fracture which is also confirmed on ct Objective - Ortho Labs 01/01/25 04:47 01/01/25 04:47 Labs: Laboratory Results - last 24 hr 12/28/24 12/29/24 22:49 05:17 WBC 7.0 5.9 RBC 3.65 L 3.42 L Hgb 10.7 L 10.1 L Hct 32.6 L 31.1 L MCV 89 91 MCH 29.3 29.5 MCHC 32.8 32.5 RDW Std Deviation 47.7 H 48.8 H Plt Count 220 215 Neut % (Auto) 79 75 Lymph % (Auto) 12 15 [place] % (Auto) 7 8 Eos % (Auto) 1 1 Baso % (Auto) 0 1 Neut # (Auto) 5.5 4.5 Lymph # (Auto) 0.8 L 0.9 L [place] # (Auto) 0.5 0.5 Eos # (Auto) 0.1 0.1 Baso # (Auto) 0.0 0.0 Immature Gran # (Auto) 0.03 H 0.03 H Absolute Nucleated RBC 0.00 0.00 Immature Gran % 0 1 H Nucleated RBC % 0 0 Sodium 139 136 Potassium 4.3 4.2 Chloride 103 101 Carbon Dioxide 29.7 29.6 Anion Gap 6 L 5 L BUN 17 17 Creatinine 0.7 0.6 Estim Creat Clear Calc 60.7 L 70.3 eGFR > 60 > 60 BUN/Creatinine Ratio 24 H 28 H Glucose 118 H 122 H Calculated Osmolality 280 274 L Calcium 8.6 8.3 Corrected Calcium 8.9 8.8 Phosphorus 3.2 Magnesium 1.8 Total Bilirubin 0.8 0.6 AST 33 27 ALT 31 27 Alkaline Phosphatase 70 65 Total Protein 5.9 5.4 L Albumin 3.6 3.4 Globulin 2.3 2.0 L Albumin/Globulin Ratio 1.6 1.7 Assessment & Plan Diagnosis (1) Closed fracture of single pubic ramus of pelvis: Status: Acute Assessment Additional comments: Patient has nondisplaced superior and inferior pubic ramus fratures and is able to ambulate with a walker - walker - PWB - pt/ot - fu in clinic in 3 weeks as this will be treated nonop Documentation for date of: 12/29/24
--- NOTE | 2024-12-29 15:23 | PCS.ST ---
CYBER FORENSICS ANALYST recommends GI consult. Begin D3 as pts preferred diet. See swallow eval for additional details
[2024-12-29] MEDS: Milk Of Magnesia Susp 30 ML UDC PO (16:47)
[2024-12-29] MEDS: MELOXICAM 7.5 MG TABLET PO (17:04)
[2024-12-29] MEDS: ESCITALOPRAM OXALATE 10 MG TABLET 5 MG PO (20:05)
[2024-12-29] MEDS: ESZOPICLONE 3 MG PO (20:43)
--- NOTE | 2024-12-29 20:51 | PC.NURSE ---
Patient notified nurse that she takes Lunesta at home to help her sleep. Patient had prn melatonin. Patient had her home medication with her in her room and gave her lunesta to nurse to take to pharmacy to verify the medication. Once medication was verified by pharmacy, patient was given her home medication of lunesta.
[2024-12-30] VITALS (8 sets, daily range): BP systolic 112–136; BP diastolic 61–80; PULSE 67–84; RESP 17–97; TEMP 36.2–36.6; O2SAT 94–95; BMI 11.0
[2024-12-30] MEDS: MORPHINE SULF INJ 10 MG/ML VIAL IVP ×4 (00:44→21:05)
[2024-12-30 05:03] LABS: Basophils % (Auto) 0 % (0-2.5); Eosinophils # (Auto) 0.2 Thou/mm3 (0.0-0.5); Eosinophils % (Auto) 3 % (0-10); Hematocrit 29.5 % (36.0-46.0); Hemoglobin 9.7 g/dL (12.0-16.0); Immature Granulocytes % (Auto) 0 % (0-0); Immature Granulocytes Auto 0.02 Thou/mm3 (0.00-0.00); Lymphocytes # (Auto) 0.9 Thou/mm3 (1.0-4.8); Lymphocytes % (Auto) 15 % (10-50); Mean Corpuscular HGB Conc 32.9 g/dl (31.0-37.0); Mean Corpuscular Hemoglobin 29.2 pg (25.0-35.0); Mean Corpuscular Volume 89 fL (80-100); Monocytes # (Auto) 0.6 Thou/mm3 (0.0-0.8); Monocytes % (Auto) 9 % (0-12); Neutrophils # (Auto) 4.6 Thou/mm3 (1.8-7.7); Neutrophils % (Auto) 73 % (37-80); Nucleated Red Blood Cell % 0 /100 WBC (0); Platelet Count 231 Thou/mm3 (140-440); RDW Standard Deviation 46.6 fL (36.4-46.3); Red Blood Count 3.32 Miln/mm3 (4.00-5.20); White Blood Count 6.3 Thou/mm3 (3.6-11.0)
[2024-12-30 05:19] LABS: Alanine Aminotransferase 20 U/L (10-49); Albumin, Serum 3.2 gm/dL (3.4-4.8); Albumin/Globulin Ratio 1.5 (1.2-2.2); Alkaline Phosphatase 61 U/L (46-116); Anion Gap 4 (7-16); Aspartate Amino Transferase 20 U/L (0-34); BUN/Creatinine Ratio 25 Ratio (12-20); Bilirubin,Total 0.6 mg/dL (0.3-1.2); Blood Urea Nitrogen 15 mg/dL (9-23); Calcium 8.1 mg/dL (8.3-10.6); Calcium (Corrected) 8.7 mg/dL (8.5-10.1); Carbon Dioxide 29.1 mMol/L (20.0-31.0); Chloride 100 mMol/L (98-107); Creatinine (Component) 0.6 mg/dL (0.6-1.3); Estimated Creatinine Clearance 70.3 mL/min (>60); Globulin 2.1 gm/dL (2.3-3.5); Glucose 96 mg/dL (74-106); Osmolality,Calculated 267 (275-295); Potassium 4.4 mMol/L (3.4-5.1); Sodium 133 mMol/L (136-145); Total Protein 5.3 gm/dL (5.7-8.2); eGFR > 60 See Note
[2024-12-30] MEDS: ENOXAPARIN SOD INJ 40 MG/0.4 ML SYRINGE SC (08:47)
[2024-12-30] MEDS: SENNA TABLET 1 TAB PO ×2 (08:47→20:59)
[2024-12-30] MEDS: DOCUSATE SOD 100 MG CAPSULE PO (08:47)
[2024-12-30] MEDS: oxyCODONE/APAP 5/325 TABLET 1 TAB PO ×2 (10:21→17:32)
--- NOTE | 2024-12-30 10:44 | ESPR_ITS ---
<Statement entered by Jose M Parker MD - 12/31/24 07:23> I discussed with and supervised the international sales representative physician involved in the care of this patient. Patient assessment and plan was discussed with entire medicine team, including my attending. I agree with the assessment and plan as documented by international sales representative doctor. Patient care was discussed with my attending physician Dr. Mo Parker, PGY-2 Documentation for date of: 12/30/24 Subjective Subjective Interval history: Patient seen and examined at bedside. Labs and vitals reviewed. Patient complains of pain, currently on IV pain medications. Orthopedics consulted, conservative management, weight bearing as tolerated. Patient had speech therapy evaluation, speech recommend further GI evaluation for possible underlying symptoms of dysphagia. Physical therapy recommends fdc facility placement. Exam Vital Signs Temp Pulse Resp BP Pulse Ox O2 Del Method 97.6 F 84 18 133/76 H 94 L Room Air 12/30/24 07:55 12/30/24 07:55 12/30/24 07:55 12/30/24 07:55 12/30/24 07:55 12/30/24 04:00 Narrative Exam Physical Exam General: Awake and in no acute distress. Conversational and non-toxic appearing. HEENT: Normocephalic, atraumatic, mucous membranes moist. Heart: Regular rate and rhythm, no murmurs. Lungs: Clear to auscultation with no wheezing or crackles. Abdomen: Soft, nondistended, nontender, positive bowel sounds. ?No guarding or rebound tenderness. Neurologic: Alert and oriented x3, no gross neurological deficit, and patient able to move all 4 extremities. Extremities: No edema. Extreme pain in the right groin during passive leg raise. Skin: No rash or ecchymoses. Objective Labs 12/31/24 04:45 12/31/24 04:45 Labs: Laboratory Results - last 24 hr 12/30/24 04:42 WBC 6.3 RBC 3.32 L Hgb 9.7 L Hct 29.5 L MCV 89 MCH 29.2 MCHC 32.9 RDW Std Deviation 46.6 H Plt Count 231 Neut % (Auto) 73 Lymph % (Auto) 15 [place] % (Auto) 9 Eos % (Auto) 3 Baso % (Auto) 0 Neut # (Auto) 4.6 Lymph # (Auto) 0.9 L [place] # (Auto) 0.6 Eos # (Auto) 0.2 Baso # (Auto) 0.0 Immature Gran # (Auto) 0.02 H Absolute Nucleated RBC 0.00 Immature Gran % 0 Nucleated RBC % 0 Sodium 133 L Potassium 4.4 Chloride 100 Carbon Dioxide 29.1 Anion Gap 4 L BUN 15 Creatinine 0.6 Estim Creat Clear Calc 70.3 eGFR > 60 BUN/Creatinine Ratio 25 H Glucose 96 Calculated Osmolality 267 L Calcium 8.1 L Corrected Calcium 8.7 Total Bilirubin 0.6 AST 20 ALT 20 Alkaline Phosphatase 61 Total Protein 5.3 L Albumin 3.2 L Globulin 2.1 L Albumin/Globulin Ratio 1.5 Quality Measures Quality Measures VTE prophylaxis Advance care planning discussed with:: patient Assessment & Plan Assessment Current Active Medications: Generic Name Dose Route Start Last Admin Trade Name Freq PRN Reason Stop Dose Admin Acetaminophen 650 mg 12/28/24 23:42 Acetaminophen 325 Mg Tablet PO 01/27/25 23:41 Q6H PRN Fever >100.3 or pain 1-3 Eszopiclone [Lunesta 0 ea 12/29/24 21:00 12/29/24 20:43 ] 3 Mg Tablet PO 01/28/25 20:59 1 tablet HS FUNMI Administration Docusate Sodium 100 mg 12/29/24 09:00 12/30/24 08:47 Docusate Sod 100 Mg Capsule PO 01/28/25 08:59 100 mg QDAY FUNMI Administration Protocol Enoxaparin Sodium 40 mg 12/29/24 09:00 12/30/24 08:47 Enoxaparin Sod Inj 40 Mg/0.4 Ml Syringe SC 01/12/25 08:59 40 mg QDAY FUNMI Administration Escitalopram Oxalate 5 mg 12/29/24 21:00 12/29/24 20:05 Escitalopram Oxalate 10 Mg Tablet PO 01/28/25 20:59 5 mg HS FUNMI Administration Morphine Sulfate 1 mg 12/30/24 08:19 Morphine Sulf Inj 10 Mg/Ml Vial IVP 01/02/25 23:41 Q4H PRN PAIN SCALE 7-10 (Severe Ondansetron HCl 4 mg 12/28/24 23:42 12/29/24 19:52 Ondansetron Inj 2 Mg/Ml Inj 2 Ml IV 01/27/25 23:41 4 mg Q6H PRN Administration NAUSEA OR VOMITING Protocol Oxycodone/Acetaminophen 1 tab 12/28/24 23:42 12/30/24 10:21 Oxycodone/Apap 5/325 Tablet PO 01/02/25 23:41 1 tab Q6H PRN Administration PAIN SCALE 4-6 (Moderate Sennosides 1 tab 12/29/24 09:00 12/30/24 08:47 Senna Tablet PO 01/28/25 08:59 1 tab QDAY FUNMI Administration Protocol Plan Assessment and Plan: Summary: Patient is a 79-year-old female with previous medical history of anxiety, osteopenia, mitral valve prolapse, status post bilateral hip replacement who was brought in to the ED due to mechanical fall. She was admitted for stable pelvis fracture management and treatment. #Left pubic rami fracture Patient has a history of osteopenia and had a mechanical fall. Dr. Pittman orthopedic surgeon was consulted, recommended conservative treatment. Patient complains of pain, requiring IV pain medications. Orthopedics consulted, conservative management, weight bearing as tolerated. Plan: -Pain control as needed, currently requiring IV Morphine, on morphine every 4 hours -Percocet as needed for moderate pain -Physical therapy evaluation -Will Consider SNF placement on discharge -Ortho consult, appreciate recommendations #Dysphagia Patient complains of dysphagia, reports that solid food gets stuck in throat, able to pass food with liquid. Speech therapy evaluated the patient, recommends GI evaluation Patient sees Dr. Leggett outpatient, had an episode of lymphocytic colitis was treated about a year ago. -Continue outpatient workup post discharge. #History of anxiety #Insomnia by history -Resumed home Lexapro -Resume home dose eszopiclone #History of mitral valve prolapse Stable condition. Patient's drop wire stringer is Dr. Guallpa. Plan: ? Blood pressure soft, will monitor #Osteopenia, by history Patient has history of osteopenia, on ibandronate outpatient ?follow-up outpatient #Migraine by history #Overactive bladder by history - Patient on sumatriptan as needed and solifenacin for overactive bladder #Normocytic normochromic anemia -outpatient workup Health maintenance: FEN: Cardiac DVT prophylaxis:Lovenox sc GI prophylaxis: Not indicated Dispo: MedSurg CODE STATUS: Full code Case discussed with Attending Dr. Puentes and Dr. Parker PGY2. Mary Li PGY1 Disclaimer: This note was dictated by speech recognition. Minor errors in bus boy may be present due to voice recognition software. Attending Provider Attestation/Addendum I reviewed labs, imaging, EKG, home medications and prior available records. Face to face evaluation was performed by me. I have personally examined the patient and discussed assessment and plan with the IM team. I reviewed the resident note and agree with the plan with exceptions as below. Pelvic fracture Left pubic [place] fracture Dysphagia Constipation, severe Orthopedic surgery recommended no surgical intervention Management of pain as needed PT recommended SNF. typing office worker is working on the case Outpatient follow-up with GI for EGD Added MiraLAX. Enema if no bowel movement. Monitor for bowel movements
[2024-12-30] MEDS: POLYETHYLENE GLYCOL 17 GM PACKET PO (13:49)
[2024-12-30] MEDS: LACTULOSE SYRUP 20 GM/30 ML UDC PO (17:32)
[2024-12-30] MEDS: ESZOPICLONE 3 MG PO (20:59)
[2024-12-30] MEDS: ESCITALOPRAM OXALATE 10 MG TABLET 5 MG PO (20:59)
[2024-12-31] VITALS (7 sets, daily range): BP systolic 99–121; BP diastolic 55–82; PULSE 67–85; RESP 17–96; TEMP 36.2–36.9; O2SAT 92–95
[2024-12-31] MEDS: oxyCODONE/APAP 5/325 TABLET 1 TAB PO ×3 (03:46→19:12)
[2024-12-31 05:21] LABS: Basophils % (Auto) 1 % (0-2.5); Eosinophils # (Auto) 0.2 Thou/mm3 (0.0-0.5); Eosinophils % (Auto) 4 % (0-10); Hematocrit 29.2 % (36.0-46.0); Hemoglobin 9.9 g/dL (12.0-16.0); Immature Granulocytes % (Auto) 0 % (0-0); Immature Granulocytes Auto 0.02 Thou/mm3 (0.00-0.00); Lymphocytes # (Auto) 0.9 Thou/mm3 (1.0-4.8); Lymphocytes % (Auto) 18 % (10-50); Mean Corpuscular HGB Conc 33.9 g/dl (31.0-37.0); Mean Corpuscular Hemoglobin 29.7 pg (25.0-35.0); Mean Corpuscular Volume 88 fL (80-100); Monocytes # (Auto) 0.6 Thou/mm3 (0.0-0.8); Monocytes % (Auto) 13 % (0-12); Neutrophils # (Auto) 3.2 Thou/mm3 (1.8-7.7); Neutrophils % (Auto) 65 % (37-80); Nucleated Red Blood Cell % 0 /100 WBC (0); Platelet Count 201 Thou/mm3 (140-440); RDW Standard Deviation 46.2 fL (36.4-46.3); Red Blood Count 3.33 Miln/mm3 (4.00-5.20)
[2024-12-31 05:56] LABS: Alanine Aminotransferase 28 U/L (10-49); Albumin, Serum 3.3 gm/dL (3.4-4.8); Albumin/Globulin Ratio 1.6 (1.2-2.2); Alkaline Phosphatase 69 U/L (46-116); Anion Gap 6 (7-16); Aspartate Amino Transferase 28 U/L (0-34); BUN/Creatinine Ratio 25 Ratio (12-20); Bilirubin,Total 0.6 mg/dL (0.3-1.2); Blood Urea Nitrogen 15 mg/dL (9-23); Calcium 8.4 mg/dL (8.3-10.6); Carbon Dioxide 27.3 mMol/L (20.0-31.0); Chloride 100 mMol/L (98-107); Creatinine (Component) 0.6 mg/dL (0.6-1.3); Estimated Creatinine Clearance 70.3 mL/min (>60); Globulin 2.1 gm/dL (2.3-3.5); Glucose 94 mg/dL (74-106); Osmolality,Calculated 267 (275-295); Potassium 4.6 mMol/L (3.4-5.1); Sodium 133 mMol/L (136-145); Total Protein 5.4 gm/dL (5.7-8.2); eGFR > 60 See Note
[2024-12-31] MEDS: MORPHINE SULF INJ 10 MG/ML VIAL IVP (08:27)
[2024-12-31] MEDS: POLYETHYLENE GLYCOL 17 GM PACKET 34 GM PO (08:28)
[2024-12-31] MEDS: SENNA TABLET 1 TAB PO (08:32)
[2024-12-31] MEDS: DOCUSATE SOD 100 MG CAPSULE PO (08:32)
[2024-12-31] MEDS: Milk Of Magnesia Susp 30 ML UDC PO (08:33)
[2024-12-31] MEDS: ENOXAPARIN SOD INJ 40 MG/0.4 ML SYRINGE SC (08:35)
--- NOTE | 2024-12-31 09:22 | PC.SS ---
PASSR LVL2 closed, File exchanged to Iona at [facility].
--- NOTE | 2024-12-31 09:23 | PC.SS ---
ANGELA spoke to Iona at [facility] who inquired if pt is ready for DC. SS updated Iona that pt is pending a BM. No DC orders yet but listed as a DC for the day. Iona stated they can pick the pt up at 1pm with their transportation. SS informed Iona SS will update her as soon as we have orders. Iona requested DC orders be sent to
[2024-12-31] MEDS: ONDANSETRON INJ 2 MG/ML INJ 2 ML 4 MG IV (10:48)
--- NOTE | 2024-12-31 11:11 | ESPR_ITS ---
<Statement entered by Jose M Parker MD - 12/31/24 18:12> I discussed with and supervised the manager international physician involved in the care of this patient. Patient assessment and plan was discussed with entire medicine team, including my attending. I agree with the assessment and plan as documented by manager international doctor. Patient care was discussed with my attending physician Dr. Mo Parker, PGY-2 Documentation for date of: 12/31/24 Subjective Subjective Interval history: Patient seen and examined at bedside. Labs and vitals reviewed. Patient continues to be on IV pain medication for pain management, otherwise patient has significant improvement. Will continue to wean patient off IV pain medication, continue physical therapy, weightbearing as tolerated. Patient will be discharged to nursing facility in 24 to 48 hours. Exam Vital Signs Temp Pulse Resp BP Pulse Ox O2 Del Method 97.6 F 74 18 113/75 94 L Room Air 12/31/24 07:57 12/31/24 09:28 12/31/24 09:28 12/31/24 07:57 12/31/24 07:57 12/31/24 07:57 Narrative Exam Physical Exam General: Awake and in no acute distress. Conversational and non-toxic appearing. HEENT: Normocephalic, atraumatic, mucous membranes moist. Heart: Regular rate and rhythm, no murmurs. Lungs: Clear to auscultation with no wheezing or crackles. Abdomen: Soft, nondistended, nontender, positive bowel sounds. ?No guarding or rebound tenderness. Neurologic: Alert and oriented x3, no gross neurological deficit, and patient able to move all 4 extremities. Extremities: No edema. Extreme pain in the right groin during passive leg raise. Skin: No rash or ecchymoses. Objective Labs 01/01/25 04:47 01/01/25 04:47 Labs: Laboratory Results - last 24 hr 12/31/24 04:45 WBC 5.0 RBC 3.33 L Hgb 9.9 L Hct 29.2 L MCV 88 MCH 29.7 MCHC 33.9 RDW Std Deviation 46.2 Plt Count 201 D Neut % (Auto) 65 Lymph % (Auto) 18 [place] % (Auto) 13 H Eos % (Auto) 4 Baso % (Auto) 1 Neut # (Auto) 3.2 Lymph # (Auto) 0.9 L [place] # (Auto) 0.6 Eos # (Auto) 0.2 Baso # (Auto) 0.0 Immature Gran # (Auto) 0.02 H Absolute Nucleated RBC 0.00 Immature Gran % 0 Nucleated RBC % 0 Sodium 133 L Potassium 4.6 Chloride 100 Carbon Dioxide 27.3 Anion Gap 6 L BUN 15 Creatinine 0.6 Estim Creat Clear Calc 70.3 eGFR > 60 BUN/Creatinine Ratio 25 H Glucose 94 Calculated Osmolality 267 L Calcium 8.4 Corrected Calcium 9.0 Total Bilirubin 0.6 AST 28 ALT 28 Alkaline Phosphatase 69 Total Protein 5.4 L Albumin 3.3 L Globulin 2.1 L Albumin/Globulin Ratio 1.6 Quality Measures Quality Measures VTE prophylaxis Advance care planning discussed with:: patient Assessment & Plan Assessment Current Active Medications: Generic Name Dose Route Start Last Admin Trade Name Freq PRN Reason Stop Dose Admin Acetaminophen 650 mg 12/28/24 23:42 Acetaminophen 325 Mg Tablet PO 01/27/25 23:41 Q6H PRN Fever >100.3 or pain 1-3 Eszopiclone [Lunesta 0 ea 12/29/24 21:00 12/30/24 20:59 ] 3 Mg Tablet PO 01/28/25 20:59 1 tablet HS FUNMI Administration Docusate Sodium 100 mg 12/29/24 09:00 12/31/24 08:32 Docusate Sod 100 Mg Capsule PO 01/28/25 08:59 100 mg QDAY FUNMI Administration Protocol Enoxaparin Sodium 40 mg 12/29/24 09:00 12/31/24 08:35 Enoxaparin Sod Inj 40 Mg/0.4 Ml Syringe SC 01/12/25 08:59 40 mg QDAY FUNMI Administration Escitalopram Oxalate 5 mg 12/29/24 21:00 12/30/24 20:59 Escitalopram Oxalate 10 Mg Tablet PO 01/28/25 20:59 5 mg HS FUNMI Administration Morphine Sulfate 1 mg 12/30/24 08:19 12/31/24 08:27 Morphine Sulf Inj 10 Mg/Ml Vial IVP 01/02/25 23:41 1 mg Q4H PRN Administration PAIN SCALE 7-10 (Severe Ondansetron HCl 4 mg 12/28/24 23:42 12/31/24 10:48 Ondansetron Inj 2 Mg/Ml Inj 2 Ml IV 01/27/25 23:41 4 mg Q6H PRN Administration NAUSEA OR VOMITING Protocol Oxycodone/Acetaminophen 1 tab 12/28/24 23:42 12/31/24 10:53 Oxycodone/Apap 5/325 Tablet PO 01/02/25 23:41 1 tab Q6H PRN Administration PAIN SCALE 4-6 (Moderate Polyethylene Glycol 34 gm 12/31/24 09:00 12/31/24 08:28 Polyethylene Glycol 17 Gm Packet PO 01/30/25 08:59 34 gm QDAY FUNMI Administration Sennosides 1 tab 12/30/24 21:00 12/31/24 08:32 Senna Tablet PO 01/29/25 20:59 1 tab BID FUNMI Administration Protocol Plan Assessment and Plan: Summary: Patient is a 79-year-old female with previous medical history of anxiety, osteopenia, mitral valve prolapse, status post bilateral hip replacement who was brought in to the ED due to mechanical fall. She was admitted for stable pelvis fracture management and treatment. #Left pubic rami fracture Patient has a history of osteopenia and had a mechanical fall. Dr. Pittman orthopedic surgeon was consulted, recommended conservative treatment. Patient complains of pain, requiring IV pain medications. Orthopedics consulted, conservative management, weight bearing as tolerated. Plan: -Pain control as needed, currently requiring IV Morphine, on morphine every 4 hours -Percocet as needed for moderate pain -Physical therapy evaluation -Will Consider SNF placement on discharge -Ortho consult, appreciate recommendations #Dysphagia Patient complains of dysphagia, reports that solid food gets stuck in throat, able to pass food with liquid. Speech therapy evaluated the patient, recommends GI evaluation Patient sees Dr. Leggett outpatient, had an episode of lymphocytic colitis was treated about a year ago. -Continue outpatient workup post discharge. #History of anxiety #Insomnia by history -Resumed home Lexapro -Resume home dose eszopiclone #History of mitral valve prolapse Stable condition. Patient's inside sales person is Dr. Guallpa. Plan: ? Blood pressure soft, will monitor #Osteopenia, by history Patient has history of osteopenia, on ibandronate outpatient ?follow-up outpatient #Migraine by history #Overactive bladder by history - Patient on sumatriptan as needed and solifenacin for overactive bladder #Normocytic normochromic anemia -outpatient workup Health maintenance: FEN: Cardiac DVT prophylaxis:Lovenox sc GI prophylaxis: Not indicated Dispo: MedSurg CODE STATUS: Full code Case discussed with Attending Dr. Puentes and Dr. Parker PGY2. Mary Li PGY1 Disclaimer: This note was dictated by speech recognition. Minor errors in carrier operator may be present due to voice recognition software. Attending Provider Attestation/Addendum I reviewed labs, imaging, EKG, home medications and prior available records. Face to face evaluation was performed by me. I have personally examined the patient and discussed assessment and plan with the IM team. I reviewed the resident note and agree with the plan with exceptions as below. Pelvic fracture Left pubic [place] fracture Dysphagia Constipation, severe Orthopedic surgery recommended no surgical intervention Management of pain as needed: Still requiring IV opiates PT recommended SNF. best worker is working on the case Outpatient follow-up with GI for EGD Added MiraLAX. Ordered an enema. She had a bowel movement after
--- NOTE | 2024-12-31 15:15 | PC.SS ---
Rounding: DC tomorrow to [facility]
[2024-12-31] MEDS: ESZOPICLONE 3 MG PO (20:30)
[2024-12-31] MEDS: ESCITALOPRAM OXALATE 10 MG TABLET 5 MG PO (20:30)
[2025-01-01] VITALS: BP 124/72; PULSE 66; RESP 18; TEMP 36.1; O2SAT 95
[2025-01-01 04:00] VITALS: BP 118/64; PULSE 69; RESP 17; TEMP 36.2; O2SAT 93
[2025-01-01 05:07] LABS: Basophils % (Auto) 1 % (0-2.5); Eosinophils # (Auto) 0.2 Thou/mm3 (0.0-0.5); Eosinophils % (Auto) 4 % (0-10); Hematocrit 30.4 % (36.0-46.0); Hemoglobin 10.1 g/dL (12.0-16.0); Immature Granulocytes % (Auto) 0 % (0-0); Immature Granulocytes Auto 0.01 Thou/mm3 (0.00-0.00); Lymphocytes # (Auto) 0.9 Thou/mm3 (1.0-4.8); Lymphocytes % (Auto) 22 % (10-50); Mean Corpuscular HGB Conc 33.2 g/dl (31.0-37.0); Mean Corpuscular Hemoglobin 29.2 pg (25.0-35.0); Mean Corpuscular Volume 88 fL (80-100); Monocytes # (Auto) 0.5 Thou/mm3 (0.0-0.8); Monocytes % (Auto) 13 % (0-12); Neutrophils # (Auto) 2.4 Thou/mm3 (1.8-7.7); Neutrophils % (Auto) 61 % (37-80); Nucleated Red Blood Cell % 0 /100 WBC (0); Platelet Count 225 Thou/mm3 (140-440); RDW Standard Deviation 45.9 fL (36.4-46.3); Red Blood Count 3.46 Miln/mm3 (4.00-5.20)
[2025-01-01] MEDS: oxyCODONE/APAP 5/325 TABLET 1 TAB PO ×2 (05:34→11:33)
[2025-01-01 05:43] LABS: Alanine Aminotransferase 31 U/L (10-49); Albumin, Serum 3.4 gm/dL (3.4-4.8); Albumin/Globulin Ratio 1.5 (1.2-2.2); Alkaline Phosphatase 82 U/L (46-116); Anion Gap 4 (7-16); Aspartate Amino Transferase 28 U/L (0-34); BUN/Creatinine Ratio 30 Ratio (12-20); Bilirubin,Total 0.4 mg/dL (0.3-1.2); Blood Urea Nitrogen 18 mg/dL (9-23); Calcium 8.3 mg/dL (8.3-10.6); Calcium (Corrected) 8.8 mg/dL (8.5-10.1); Carbon Dioxide 28.6 mMol/L (20.0-31.0); Chloride 100 mMol/L (98-107); Creatinine (Component) 0.6 mg/dL (0.6-1.3); Estimated Creatinine Clearance 70.3 mL/min (>60); Globulin 2.2 gm/dL (2.3-3.5); Glucose 96 mg/dL (74-106); Magnesium 2.2 mg/dL (1.6-2.6); Osmolality,Calculated 268 (275-295); Potassium 4.6 mMol/L (3.4-5.1); Sodium 133 mMol/L (136-145); Total Protein 5.6 gm/dL (5.7-8.2); eGFR > 60 See Note
[2025-01-01 08:00] VITALS: BP 111/67; PULSE 78; RESP 18; TEMP 36.3; O2SAT 95
[2025-01-01] MEDS: ENOXAPARIN SOD INJ 40 MG/0.4 ML SYRINGE SC (08:41)
--- NOTE | 2025-01-01 09:59 | PC.SS ---
Addendum entered by [place] Shearer 01/01/25 11:51: [facility] will provide wheelchair transportation at 3pm. Pt states she is able to sit in wheelchair. Pt is aware and she will contact . Bedside nurseLucretia is aware. Original Note: Follow up note: Pt will dc today to [facility]. Pt is aware. Bedside nurseLucretia is aware. Jo from [facility] is aware and can provide transportation.
[2025-01-01 11:12] VITALS: BMI 14.0
--- NOTE | 2025-01-01 11:30 | PD.RESDS ---
Planned Discharge Date 01/01/25 DS: Providers Provider Date of admission: 12/28/24 23:42 Primary care physician: Ekaterina Willett MD Admitting Provider: Andre Resendiz MD Attending Provider on Admission: Andre Resendiz MD Consults: 12/28/24 22:35 Consult to Orthopedic Stat Comment: Consulting Provider: Jaspal Pittman 12/28/24 23:47 Referral Physical Therapy Routine Comment: Physician Instructions: 12/28/24 23:48 Referral Wound Care Routine Comment: 12/29/24 04:07 Referral Registered Dietitian Routine Comment: Referral Speech Therapy Routine Comment: Attending Provider on DC: Ezekiel Hassan MD Discharging Provider: Ezekiel Hassan MD Anticipated date of discharge: 01/01/25 DS: Diagnosis Problem List Completed Was Problem List Reviewed/Reconciled?: Yes Hospital Course Hospital Course Hospital course: Hospital course: Ms Luis is a 79-year-old female with past medical history of chronic pain status post spinal nerve stimulator, anxiety, osteopenia, mitral valve prolapse, lymphocytic colitis, status post bilateral hip replacement who presented to [facility] emergency department on 12/28/2024 with a chief complaint of status post ground-level mechanical fall. Patient's imaging on presentation showed left pubic rami fracture, minimally displaced. Orthopedic surgeon Dr. Pittman was consulted, recommended conservative management, no surgical intervention, physical therapy was ordered, weightbearing as tolerated. The patient's hospital course was complicated with significant pain, patient was requiring IV pain medication to manage pain, eventually patient was weaned off of IV medication to p.o. oxycodone. Patient participated well with physical therapy had good response. Patient's other home medications were resumed, patient condition improved remarkably with the progression of hospital course. Further plan is to discharge patient to custodial facility for further physical therapy and follow-up with primary care physician outpatient in 1 week, patient to use Percocet as needed for pain. Patient responded well to hospital treatment, patient is stable for discharge. Discharge diagnosis: #Left pubic rami fracture #Status post ground-level mechanical fall #Dysphagia #Anxiety #Insomnia #Mitral valve prolapse by history #Osteopenia by history #Migraine by history #Overactive bladder by history #Normocytic normochromic anemia Case discussed with Attending Dr. Hassan and Dr. Parker PGY2. Mary Li PGY1 Disclaimer: This note was dictated by speech recognition. Minor errors in track repairer helper may be present due to voice recognition software. Status at Discharge Functional status at discharge: uses cane/walker Overall status at discharge: patient is progressing back to baseline Time Spent with Patient Time attestation: Total time spent providing and/or coordinating discharge services: Greater than 35 minutes Time spent: Greater than 30 minutes Exam Vital Signs Temp Pulse Resp BP Pulse Ox O2 Del Method 97.4 F 78 18 111/67 95 Room Air 01/01/25 08:00 01/01/25 08:00 01/01/25 08:00 01/01/25 08:00 01/01/25 08:00 01/01/25 08:00 Narrative Exam Physical Exam General: Awake and in no acute distress. Conversational and non-toxic appearing. HEENT: Normocephalic, atraumatic, mucous membranes moist. Heart: Regular rate and rhythm, no murmurs. Lungs: Clear to auscultation with no wheezing or crackles. Abdomen: Soft, nondistended, nontender, positive bowel sounds. ?No guarding or rebound tenderness. Neurologic: Alert and oriented x3, no gross neurological deficit, and patient able to move all 4 extremities. Extremities: No edema. Pain in the right groin during passive leg raise. Skin: No rash or ecchymoses. Discharge Plan Plan Patient Disposition: Xfer Skilled [facility] (SNF) Disposition Comment: Reading Post Acute Patient condition on transfer: Stable Care Plan Goals: Continue Percocet as needed for severe breakthrough pain. Use meloxicam as needed for moderate pain. Continue docusate, senna and MiraLAX for constipation. Continue physical therapy, weight bearing as tolerated. Hold ibandronate, follow up with PCP before resuming. Continue all other home medications. Follow-up outpatient with Dr. Leggett, medical numerical control operator for further workup for dysphagia. Continue wound care at custodial facility, remove sutures in 1 week Follow-up outpatient with primary care physician in 1 week. Return to emergency department if symptoms worsen. Prescriptions/Referrals Prescriptions/Med Rec: New sennosides [senna] 8.6 mg Tablet 8.6 mg PO BID 30 Days Qty: 60 0RF polyethylene glycol 3350 [HealthyLax] 17 gram Powder In Packet 34 g PO QDAY Qty: 30 0RF oxycodone-acetaminophen 5-325 mg Tablet 1 tab PO Q6H MDD 4 tablets PRN (Reason: Pain Scale 4-6 (Moderate) Qty: 30 0RF docusate sodium 100 mg Capsule 100 mg PO QDAY 30 Days Qty: 30 0RF Continued meloxicam 15 mg tablet 15 mg PO QDAY Patient Comments: TAKE 1 TABLET BY MOUTH EVERY DAY WITH FOOD sumatriptan succinate 50 mg Tablet 50 mg PO BID PRN (Reason: migraine headache) propranolol 80 mg capsule,extended release 24 hr 80 mg PO HS Patient Comments: TAKE 1 CAPSULE BY MOUTH EVERY DAY escitalopram oxalate [Lexapro] 5 mg Tablet 5 mg PO HS solifenacin 10 mg tablet 10 mg PO QDAY Patient Comments: TAKE 1 TABLET BY MOUTH EVERY DAY FOR 90 DAYS eszopiclone [Lunesta] 3 mg Tablet 3 mg PO HS Held ibandronate 150 mg Tablet 150 mg PO QMONTH Hold Instructions: Resume on 01/08/25. Discontinued ibandronate [Boniva] 150 MG tablet 150 mg PO Q30D Qty: 0 tramadol 50 mg tablet 50 mg PO DAILY Patient Comments: TAKE 1 TABLET BY MOUTH TWICE A DAY NEEDED acyclovir 800 mg Tablet 800 mg PO TID Referrals: Gabby Leggett MD [Physician] - Ekaterina Willett MD [Primary Care Provider] - Patient/Caregiver Discharge Instructions Discharge Activity: as per physical therapy Other Discharge Activity Instructions:: Continue Percocet as needed for severe breakthrough pain. Use meloxicam as needed for moderate pain. Continue docusate, senna and MiraLAX for constipation. Continue physical therapy, weight bearing as tolerated. Hold ibandronate, follow up with PCP before resuming. Continue all other home medications. Follow-up outpatient with Dr. Leggett, medical numerical control operator for further workup for dysphagia. Continue wound care at custodial facility, remove sutures in 1 week Follow-up outpatient with primary care physician in 1 week. Return to emergency department if symptoms worsen. Education Materials: [facility], ED Pelvic Fracture Print Language: Chinese Stand Alone Forms: [employer] Award Info., Patient Portal Info Letter Discharge Order Discharge Orders: Discharge (Routine); Ordered 01/01/25 Ordered By: Mary Li Quality Discharge Quality Measures VTE prophylaxis Attestestation MD Mya Gomes reviewed labs, imaging, EKG, home medications and prior available records. Face to face evaluation was performed by me. I have personally examined the patient and discussed assessment and plan with the IM team. I reviewed the resident note and agree with the plan with exceptions as below. Pelvic fracture Left pubic [place] fracture Dysphagia Constipation, severe Orthopedic surgery recommended no surgical intervention Management of pain as needed: She is off IV opiates and can be discharged on oral oxycodone as needed PT recommended SNF. She gladly place ready Outpatient follow-up with GI for EGD Continue constipation management as needed Remove head sutures in 7 to 10 days Time spent is 40 minutes. More than 50% of the time was spent on patient education and coordination of care.
[2025-01-01 12:00] VITALS: BP 111/67; PULSE 57; RESP 19; TEMP 36.3; O2SAT 97
--- NOTE | 2025-01-01 12:48 | PC.NURSE ---
gave report to jae at [facility]
== END 2025-01-01 14:55 | disposition skilled nursing facility (03) | DRG 536 ==
LOC: SERX 23:44 → SERHOLD 12-29 00:17 → S3SX 12-29 01:01
PROVIDERS: Emergency Provider Emergency Medicine; PCP Family Medicine; Visit Provider Student in an Organized Health Care Education/Training Program
DX: S32.592A Other specified fracture of left pubis, initial encounter for closed fracture (principal); F41.9 Anxiety disorder, unspecified; S51.012A Laceration without foreign body of left elbow, initial encounter; M85.80 Other specified disorders of bone density and structure, unspecified site; I34.1 Nonrheumatic mitral (valve) prolapse; Z96.643 Presence of artificial hip joint, bilateral; W18.30XA Fall on same level, unspecified, initial encounter; K59.00 Constipation, unspecified; R13.10 Dysphagia, unspecified; G47.00 Insomnia, unspecified; N32.81 Overactive bladder
CPT/HCPCS: 36415; 70450; 71045; 72040; 72192; 73080; 73090; 73502; 80053; 83735; 84100; 85025; 90471; 90714; 92610; 93005; 96374; 97163; 99285; J1650; J2270; J2405; J3490; A9270

== ENCOUNTER → 2025-02-06 | Outpatient (CLI) | payer MEDICARE, OTHER, SELFPAY ==
--- NOTE | 2025-02-06 10:48 | XR_ITS ---
Examination: Lumbar spine, 5 views Technique: Lumbar spine AP, lateral, coned lateral lower lumbar spine, bilateral obliques 5 views Exam date and time: 05/09/2025 1119 hours Comparison October 04, 2019 INDICATIONS: Patient fell last month with injury to lower back, lower back pain FINDINGS: Prominent osteopenia Lower lumbar levoscoliosis 25 degrees Advanced diffuse facet arthropathy Subacute compression fracture L2, reduction in height 60% This may be a pathologic fracture IMPRESSION: Recommend CT scan lumbar spine without contrast follow-up to assess possible subacute pathologic fracture L2 vertebral body
--- NOTE | 2025-02-06 10:48 | XR_ITS ---
Examination: AP pelvis single view TECHNIQUE: Supine AP pelvis single view Date and time: February 06, 2025 1123 hours Comparison December 28, 2024 INDICATIONS: Pelvic pain one month. FINDINGS: Total right knee arthroplasty with satisfactory alignment Left hip bipolar hemiarthroplasty with satisfactory alignment Healing fracture left inferior pubic ramus and superior pubic ramus with satisfactory alignment IMPRESSION: Healing fractures left superior inferior pubic rami with satisfactory alignment
== END | disposition home or self-care (01) ==
PROVIDERS: PCP Family Medicine; Referring Provider Physician Assistant; Visit Provider Physician Assistant
DX: R10.2 Pelvic and perineal pain (principal); Z87.81 Personal history of (healed) traumatic fracture; S39.92XA Unspecified injury of lower back, initial encounter; W19.XXXA Unspecified fall, initial encounter
CPT/HCPCS: 72110; 72170

== ENCOUNTER → 2025-04-19 | Outpatient (CLI) | payer MEDICARE, OTHER, SELFPAY ==
[2025-04-19 16:58] LABS: Collection Type, Urine Clean Catch; Squamous Epithelial Cell,Urine 0 /hpf (0-5)
[2025-04-19 17:32] LABS: Basophils # (Auto) 0.1 Thou/mm3 (0.0-0.2); Basophils % (Auto) 1 % (0-2.5); Eosinophils # (Auto) 0.1 Thou/mm3 (0.0-0.5); Eosinophils % (Auto) 2 % (0-10); Hematocrit 35.7 % (36.0-46.0); Hemoglobin 11.8 g/dL (12.0-16.0); Immature Granulocytes Auto 0.01 Thou/mm3 (0.00-0.00); Lymphocytes # (Auto) 1.3 Thou/mm3 (1.0-4.8); Lymphocytes % (Auto) 28 % (10-50); Mean Corpuscular HGB Conc 33.1 g/dl (31.0-37.0); Mean Corpuscular Hemoglobin 31.1 pg (25.0-35.0); Mean Corpuscular Volume 94 fL (80-100); Monocytes # (Auto) 0.4 Thou/mm3 (0.0-0.8); Monocytes % (Auto) 9 % (0-12); Neutrophils # (Auto) 2.9 Thou/mm3 (1.8-7.7); Neutrophils % (Auto) 60 % (37-80); Nucleated Red Blood Cell # 0.00 Thou/mm3 (0.00-0.00); Nucleated Red Blood Cell % 0 /100 WBC (0); Platelet Count 232 Thou/mm3 (140-440); RDW Standard Deviation 48.0 fL (36.4-46.3); Red Blood Count 3.80 Miln/mm3 (4.00-5.20); White Blood Count 4.9 Thou/mm3 (3.6-11.0)
[2025-04-19 17:34] LABS: Bilirubin,Urine Negative (Negative); Blood,Urine Negative (Negative); Clarity,Urine Clear (Clear/Hazy); Color,Urine Lt-Yellow (Lt Yel-Yel); Culture Indicated,Urine Not Indicated; Glucose, Urine Negative (Negative); Ketones,Urine Negative (Negative); Leukocyte Esterase,Urine Negative (Negative); Nitrite,Urine Negative (Negative); PH,Urine 5.5 (5.0-7.0); Protein,Urine Negative (Neg - Trace); RBC,Urine 2 /hpf (0-3); Specific Gravity,Urine 1.017 (1.001-1.035); Urobilinogen,Urine Negative mg/dL (0.0-1.0); WBC,Urine < 1 /hpf (0-5)
[2025-04-19 17:39] LABS: Alanine Aminotransferase 22 U/L (10-49); Albumin, Serum 4.3 gm/dL (3.4-4.8); Albumin/Globulin Ratio 1.8 (1.2-2.2); Alkaline Phosphatase 77 U/L (46-116); Anion Gap 7 (7-16); Aspartate Amino Transferase 26 U/L (0-34); BUN/Creatinine Ratio 18 Ratio (12-20); Bilirubin,Total 0.3 mg/dL (0.3-1.2); Blood Urea Nitrogen 16 mg/dL (9-23); Calcium 9.4 mg/dL (8.3-10.6); Calcium (Corrected) 9.4 mg/dL (8.5-10.1); Carbon Dioxide 28.0 mMol/L (20.0-31.0); Chloride 106 mMol/L (98-107); Creatinine (Component) 0.9 mg/dL (0.6-1.3); Globulin 2.4 gm/dL (2.3-3.5); Glucose 92 mg/dL (74-106); Osmolality,Calculated 282 (275-295); Potassium 4.4 mMol/L (3.4-5.1); Sodium 141 mMol/L (136-145); Total Protein 6.7 gm/dL (5.7-8.2); eGFR > 60 See Note
[2025-04-19 17:57] LABS: INR 1.1 (0.9-1.3); Partial Thromboplastin Time 26.1 Seconds (22.0-36.0); Prothrombin Time 11.5 Seconds (9.0-12.2)
== END | disposition home or self-care (01) ==
LOC: COPL 16:35
PROVIDERS: PCP Family Medicine; Referring Provider Family Medicine; Visit Provider Family Medicine
DX: R79.9 Abnormal finding of blood chemistry, unspecified (principal)
CPT/HCPCS: 36415; 80053; 81001; 85025; 85610; 85730

== ENCOUNTER → 2025-07-02 | Outpatient (CLI) | payer MEDICARE, OTHER, SELFPAY ==
[2025-07-02 17:08] LABS: Collection Type, Urine Clean Catch
[2025-07-02 17:21] LABS: Basophils # (Auto) 0.0 Thou/mm3 (0.0-0.2); Basophils % (Auto) 1 % (0-2.5); Eosinophils # (Auto) 0.1 Thou/mm3 (0.0-0.5); Eosinophils % (Auto) 2 % (0-10); Hematocrit 34.9 % (36.0-46.0); Hemoglobin 11.6 g/dL (12.0-16.0); Immature Granulocytes Auto 0.02 Thou/mm3 (0.00-0.00); Lymphocytes # (Auto) 1.7 Thou/mm3 (1.0-4.8); Lymphocytes % (Auto) 34 % (10-50); Mean Corpuscular HGB Conc 33.2 g/dl (31.0-37.0); Mean Corpuscular Hemoglobin 30.9 pg (25.0-35.0); Mean Corpuscular Volume 93 fL (80-100); Monocytes # (Auto) 0.4 Thou/mm3 (0.0-0.8); Monocytes % (Auto) 8 % (0-12); Neutrophils # (Auto) 2.7 Thou/mm3 (1.8-7.7); Neutrophils % (Auto) 55 % (37-80); Nucleated Red Blood Cell # 0.00 Thou/mm3 (0.00-0.00); Nucleated Red Blood Cell % 0 /100 WBC (0); Platelet Count 245 Thou/mm3 (140-440); RDW Standard Deviation 48.7 fL (36.4-46.3); Red Blood Count 3.75 Miln/mm3 (4.00-5.20); White Blood Count 4.9 Thou/mm3 (3.6-11.0)
[2025-07-02 17:29] LABS: INR 1.0 (0.9-1.3); Partial Thromboplastin Time 24.8 Seconds (22.0-36.0); Prothrombin Time 10.9 Seconds (9.0-12.2)
[2025-07-02 17:32] LABS: Bilirubin,Urine Negative (Negative); Blood,Urine Negative (Negative); Clarity,Urine Clear (Clear/Hazy); Color,Urine Colorless (Lt Yel-Yel); Culture Indicated,Urine Not Indicated; Glucose, Urine Negative (Negative); Ketones,Urine Negative (Negative); Leukocyte Esterase,Urine Negative (Negative); Nitrite,Urine Negative (Negative); PH,Urine 6.0 (5.0-7.0); Protein,Urine Negative (Neg - Trace); RBC,Urine < 1 /hpf (0-3); Specific Gravity,Urine 1.011 (1.001-1.035); Squamous Epithelial Cell,Urine < 1 /hpf (0-5); Urobilinogen,Urine Negative mg/dL (0.0-1.0); WBC,Urine 1 /hpf (0-5)
[2025-07-02 17:40] LABS: Alanine Aminotransferase 22 U/L (10-49); Albumin, Serum 4.3 gm/dL (3.4-4.8); Albumin/Globulin Ratio 1.9 (1.2-2.2); Alkaline Phosphatase 68 U/L (46-116); Anion Gap 7 (7-16); Aspartate Amino Transferase 25 U/L (0-34); BUN/Creatinine Ratio 19 Ratio (12-20); Bilirubin,Total 0.3 mg/dL (0.3-1.2); Blood Urea Nitrogen 19 mg/dL (9-23); Calcium 9.4 mg/dL (8.3-10.6); Calcium (Corrected) 9.4 mg/dL (8.5-10.1); Carbon Dioxide 28.6 mMol/L (20.0-31.0); Chloride 101 mMol/L (98-107); Creatinine (Component) 1.0 mg/dL (0.6-1.3); Globulin 2.3 gm/dL (2.3-3.5); Glucose 94 mg/dL (74-106); Osmolality,Calculated 276 (275-295); Potassium 4.5 mMol/L (3.4-5.1); Sodium 137 mMol/L (136-145); Total Protein 6.6 gm/dL (5.7-8.2); eGFR 57 See Note
== END | disposition home or self-care (01) ==
PROVIDERS: PCP Registered Nurse; Referring Provider Registered Nurse; Visit Provider Registered Nurse
DX: Z01.818 Encounter for other preprocedural examination (principal)
CPT/HCPCS: 36415; 80053; 81001; 85025; 85610; 85730

== ENCOUNTER → 2025-08-30 | Outpatient (CLI) | payer MEDICARE, OTHER, SELFPAY ==
--- NOTE | 2025-08-30 07:00 | XR_ITS ---
Examination: MRI left hip without intravenous contrast. Date and time of exam: August 30, 2025, 0730 hours INDICATIONS: Left hip pain extending to the groin region numbness in the left leg several years Technique: Multiple MRI images of the left hip have been obtained T1 weighted coronal sections, TR 500, TE 12 Proton density coronal fat saturated images, TR 3000, TE 71 T2-weighted coronal images, 5850, TE 104 T1-weighted axial images, TR 521, TE 12 T2-weighted axial fat suppressed images, TR 5730, TE 103. 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
== END | disposition home or self-care (01) ==
PROVIDERS: PCP Family Medicine; Referring Provider Orthopaedic Surgery; Visit Provider Orthopaedic Surgery
DX: M70.62 Trochanteric bursitis, left hip (principal)
CPT/HCPCS: 73721